=== PATIENT | male | born 1970 | race Caucasian/White ===

== ENCOUNTER 2025-02-17 17:34 | Emergency (ER) | payer BC, SELFPAY ==
--- OUTSIDE RECORDS SUMMARY | 2025-02-17 17:47 | XMS_ITS | Encounter Summary ---
Author Organization [facility] Address [address] [place] [address] Care Team Providers Care Security Ambassador Name Role Phone Danielle Lancaster MD Primary Care Provider [phone] Lynne Luong DO Unavailable [phone] Reason for Visit * Reason Onset Date Comments Med Refill 02/09/2025 Encounter Details Date Type Department Care Team (Late st Contact Info) Description 02/09/2025 Refill [facility] [address] [facility] 230 [place] [phone] Lynne Luong DO [address] [facility] 230 [place] [address] Type 2 diabetes mellitus with diabetic polyneuropathy, with long-term current use of insulin (HCC); Type 2 diabetes with nephropathy (HCC) Social History Tobacco Use Types Packs/Day Years Used Date Smoking Tobacco: Former Cigarettes 3 28 0 08/20/1984 - 08/20/2012 Smokeless Tobacco: Never Comments:Last smoked: 5-10 y ears Alcohol Use Standard Drinks/Week Comments Not Currently 0 (1 standard drink = 0.6 oz pure alcohol) 1-2 drinks on a typical day monthly or less in the past eyar, caffeine intake: 1-2 cups coffee per day B1300 Health Literacy Answer Date Recor ded How often do you need to hav e someone help you when you read instructions, pamphlets, or other written material from your doctor or pharmacy? Never 06/27/2024 Humiliation, Afraid, Rape, and Kick questionnair e Answer Date Recorded Within the last year, have y ou been afraid of your partner or ex-partner? No 02/28/2023 Within the last year, have y ou been humiliated or emotionally abused in other ways by your partner or ex-partner? No Within the last year, have y ou been kicked, hit, slapped, or otherwise physically hurt by your partner or ex-partner? No 02/28/2023 Within the last year, have y ou been raped or forced to have any kind of sexual activity by your partner or ex-partner? No 02/28/2023 Social Connection and Isolat ion Panel [NHANES] Answer Date Recorded In a typical week, how many times do you talk on the phone with family, friends, or neighbors? Never 06/27/2024 How often do you get togethe r with friends or relatives? More than three times a week 06/27/2024 How often do you attend chur or voodoo services? 1 to 4 times per year 06/27/2024 Do you belong to any clubs o r organizations such as latter-day groups, unions, fraternal or athletic groups, or school groups? Yes 06/27/2024 How often do you attend meet ings of the clubs or organizations you belong to? More than 4 times per year 06/27/2024 Are you , , di vorced, , never , or living with a partner? 06/27/2024 AUDIT-C Answer Date Recorded Q1: How often do you have a drink containing alc ohol? Monthly or less 06/27/2024 Q2: How many drinks containi ng alcohol do you have on a typical day when you are drinking? 1 or 2 06/27/2024 Q3: How often do you have si x or more drinks on one occasion? Never 06/27/2024 Overall Financial Resource Strain (CARDIA) Answe r Date Recorded How hard is it for you to pa y for the very basics like food, housing, medical care, and heating? Very hard 06/27/2024 PHQ-2 Answer Date Recorded Patient Health Questionnaire-2 Score 0 01/15/2025 [facility] - Occupational Stress Questionnaire Answer Date Recorded Do you feel stress - tense, restless, nervous, or anxious, or unable to sleep at night because your mind is troubled all the time - these days? To some extent 06/27/2024 Exercise Vital Sign Answer Date Recorde d On average, how many days pe r week do you engage in moderate to strenuous exercise (like a brisk walk)? 0 days 06/27/2024 On average, how many minutes do you engage in exercise at this level? 0 min 06/27/2024 Hunger Vital Sign Answer Date Recorded Within the past 12 months, y ou worried that your food would run out before you got the money to buy more. Never true 06/27/20 24 Within the past 12 months, t he food you bought just didn't last and you didn't have money to get more. Never true 06/27/2024 PRAPARE - Transportation Answer Date Re corded In the past 12 months, has l ack of transportation kept you from medical appointments or from getting medications? No 03/2024 In the past 12 months, has l ack of transportation kept you from meetings, work, or from getting things needed for daily living? No 06/27/2024 Housing Stability Vital Sign Answer Barak e Recorded In the last 12 months, was t here a time when you were not able to pay the mortgage or rent on time? No 02/28/2023 In the last 12 months, how many places have you lived? 1 02/28/2023 In the last 12 months, was t here a time when you did not have a steady place to sleep or slept in a skilled nursing (including now)? No 02/28/2023 Housing Stability Vital Sign Answer Barak e Recorded In the last 12 months, was t here a time when you were not able to pay the mortgage or rent on time? No 06/27/2024 Number of Times Moved in the Last Year Not on fi le 06/27/2024 At any time in the past 12 m [facility], were you homeless or living in a skilled nursing (including now)? No 06/27/2024 Education Answer Date Recorded What is the highest level of school you have completed or the highest degree you have received? Some college, no degree 01/08/2023 Sex and Gender Information Value Date Recorded Sex Assigned at Not on file Legal Sex Male 7:10 PM EDT Gender Identity Male 11/01/2022 7:10 PM EDT Sexual Orientation Straight 01/03/2023 4: 58 PM EDT Occupation Industry Job Start Date Job End Date unemployed Not on file Not on file Not on file documented as of this encounter Miscellaneous Notes * Telephone Encounter - Zaira David LPN - 02/09/2025 12:50 PM EDT Last ov 01/15/2025 RX sent in per Dr Batista documented in this encounter Plan of Treatment Upcoming Encounters Date Type Department Care Team (Late st Contact Info) Description 02/19/2025 4:15 PM EDT Ancillary Procedure [facility] [address] [facility] 130 [place] [phone] 02/24/2025 2:00 PM EDT Office Visit [facility] [address] [place] [phone] Yo Brown, PA [address] [facility] 150 [place] [address] 05/19/2025 3:00 PM EDT Office Visit [facility] [address] [facility] 230 [place] [address] Lynne Luong DO [address] [facility] 230 [place] [address] documented as of this encounter Visit Diagnoses Diagnosis Type 2 diabetes mellitus with diabetic polyneuropathy, with long-term current use of insulin (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
--- OUTSIDE RECORDS SUMMARY | 2025-02-17 17:47 | XMS_ITS | Encounter Summary ---
Author Organization [facility] Address [address] [place] [address] Care Team Providers Care Senior Investment Analyst Name Role Phone Danielle Lancaster MD Primary Care Provider [phone] Lynne Luong DO Unavailable [phone] Lynne Luong DO Unavailable [phone] Encounter Details Date Type Department Care Team (Late st Contact Info) Description 04/03/2023 Abstract [facility] [address] [facility] 230 [place] [address] Lynne Luong, [address] [facility] 230 [place] [address] Social History Tobacco Use Types Packs/Day Years Used Date Smoking Tobacco: Former Cigarettes 3 28 0 08/20/1984 - 08/20/2012 Comments:Last smoked: 5-10 y ears Alcohol Use Standard Drinks/Week Comments Yes 0 (1 standard drink = 0.6 oz pure alcohol) 1-2 drinks on a typical day monthly or less in the past eyar, caffeine intake: 1-2 cups coffee per day Humiliation, Afraid, Rape, and Kick questionnair e [...] phone with family, friends, or neighbors? Never 02/28/2023 How often do you get togethe r with friends or relatives? Once a week 02/28/2023 How often do you attend chur or mormonism services? More than 4 times per year 02/28/2023 Do you belong to any clubs o r organizations such as yazidism groups, unions, fraternal or athletic groups, or school groups? No 02/28/2023 How often do you attend meet ings of the clubs or organizations you belong to? Never 02/28/2023 Are you , , di vorced, , never , or living with a partner? 02/28/2023 AUDIT-C Answer Date Recorded Q1: How often do you have a drink containing alc ohol? Monthly or less 02/28/2023 Q2: How many drinks containi ng alcohol do you have on a typical day when you are drinking? 1 or 2 02/28/2023 Q3: How often do you have si x or more drinks on one occasion? Never 02/28/2023 Overall Financial Resource Strain (CARDIA) Answe r Date Recorded How hard is it for you to pa y for the very basics like food, housing, medical care, and heating? Hard 02/28/2023 PHQ-2 Answer Date Recorded Patient Health Questionnaire-2 Score 0 04/03/2023 [facility] of Occupat ional Health - Occupational Stress Questionnaire Answer Date Recorded Do you feel stress - tense, restless, nervous, or anxious, or unable to sleep at night because your mind is troubled all the time - these days? Very much 02/28/2023 Exercise Vital Sign Answer Date Recorde d On average, how many days pe r week do you engage in moderate to strenuous exercise (like a brisk walk)? 0 days 02/28/2023 On average, how many minutes do you engage in exercise at this level? 0 min 02/28/2023 Hunger Vital Sign Answer Date Recorded Within the past 12 months, y ou worried that your food would run out before you got the money to buy more. Never true 02/29/20 23 Within the past 12 months, t he food you bought just didn't last and you didn't have money to get more. Never true 02/28/2023 PRAPARE - Transportation Answer Date Re corded In the past 12 months, has l ack of transportation kept you from medical appointments or from getting medications? No 02/17 In the past 12 months, has l ack of transportation kept you from meetings, work, or from getting things needed for daily living? No 02/28/2023 Housing Stability Vital Sign Answer [...] place to sleep or slept in a group home (including now)? No 02/28/2023 Education Answer Date Recorded What is the [...] file Not on file Not on file COVID-19 Exposure Response Date Recorded In the last 10 days, have yo u been in contact with someone who was confirmed or suspected to have Coronavirus/COVID-19? No / Unsure 04/02/2023 5:17 PM EDT documented as of this encounter Functional Status * Over the past 2 weeks, how often have you been bothered by any of the following problems? Question Answer Date of Assessment Author Little interest or pleasure in doing things Not at all 04/03/2023 3:40 PM EDT Zaira David LPN Feeling down, depressed, or hopeless Not at all 04/03/2023 3:40 PM EDT Zaira David LPN Patient Health Questionnaire-2 Score 0 04/03/2023 3:40 PM EDT Qasim David LPN documented as of this encounter Plan of Treatment Upcoming Encounters Date Type Department Care Team (Late st Contact Info) Description 02/19/2025 4:15 PM EDT Ancillary Procedure [facility] [address] [facility] 130 [place] [phone] 02/24/2025 2:00 PM EDT Office Visit [facility] [address] [place] [phone] Yo Brown PA 112 [facility] 150 [place] [address] 05/19/2025 3:00 PM EDT Office Visit [facility] [address] [facility] [address] [facility] 230 [place] [phone] Lynne Luong DO [address] [place] [address] [place] [address] documented as of this encounter Visit Diagnoses Not on filedocumented in this encounter Care Teams Senior Investment Analyst Relationship Specialty Start Date End Date Danielle Lancaster MD [address] [place] [address] PCP - General Family Medicine 01/08/23 Lynne Luong DO [address] [place] [address] [place] [address] PCP - [facility] 02/17/23 Lynne Luong DO [address] [place] [address] [place] [address] PCP - [place] [employer] 11/19/23 documented as of this encounter
--- OUTSIDE RECORDS SUMMARY | 2025-02-17 17:47 | XMS_ITS | Encounter Summary ---
Author Organization [facility] Address [address] [place] [address] Care Team Providers Care Rail Switch Operator Name Role Phone Danielle Lancaster MD Primary Care Provider Lynne Luong DO Unavailable [phone] Encounter Details Date Type Department Care Team (Late st Contact Info) Description 01/06/2025 Abstract [facility] [address] [place] [address] Danielle Lancaster MD [address] [place], [place] [phone] Social History Tobacco Use Types Packs/Day Years [...] 06/27/2024 How often do you attend chur ch or jainism services? 1 to 4 times per year 06/27/2024 Do you belong to any clubs o r organizations such as druze groups, unions, fraternal or athletic groups, or [...] Recorded Patient Health Questionnaire-2 Score 0 04/03/2023 [facility] [place] of Occupat ional Health - Occupational Stress [...] place to sleep or slept in a fdc (including now)? No 02/28/2023 Housing Stability Vital Sign Answer Barak e Recorded In the last 12 months, was t here a time when you were not able to pay the mortgage or rent on time? No 06/27/2024 Number of Times Moved in the Last Year Not on fi le 06/27/2024 At any time in the past 12 m [facility], were you homeless or living in a fdc (including now)? No 06/27/2024 Education Answer Date [...] on file documented as of this encounter Plan of Treatment Upcoming Encounters Date Type Department Care Team (Late st Contact Info) Description 02/19/2025 4:15 PM EDT Ancillary Procedure [facility] [address] [place] [address] [place] [phone] 02/24/2025 2:00 PM EDT Office Visit [facility] [address] [place] [phone] Yo Brown, PA [address] [facility] 150 [place] [address] 05/19/2025 3:00 PM EDT Office Visit [facility] [address] [place] [address] [place] [address] Lynne Luong DO [address] [place] [address] [place] [address] documented as of this encounter Visit Diagnoses Not on filedocumented in this encounter Care Teams Rail Switch Operator Relationship Specialty Start Date End Date Danielle Lancaster MD [address] [place] [address] PCP - General Family Medicine 01/08/23 Lynne Luong, [address] [place] [address] [place] [address] PCP - [facility] 11/19/23 documented as of this encounter
--- OUTSIDE RECORDS SUMMARY | 2025-02-17 17:47 | XMS_ITS | Encounter Summary ---
Author Organization [facility] Address [address] [facility] [place] [address] Care Team Providers Care Weed Cutter Name Role Phone Danielle Lancaster MD Primary Care Provider [phone] Lynne Luong DO Unavailable [phone] Encounter Details Date Type Department Care Team (Late st Contact Info) Description 01/25/2025 Abstract [facility] [address] [place] [address] Danielle Lancaster MD [address] [place], [place] [phone] Social History Tobacco Use Types Packs/Day Years [...] often do you attend chur ch or scientology services? 1 to 4 times per year 06/27/2024 Do you belong to any clubs o r organizations such as bahai groups, unions, fraternal or athletic groups, or [...] Recorded Patient Health Questionnaire-2 Score 0 01/15/2025 [facility] [place] of Occupat ional Health - Occupational Stress [...] any time in the past 12 m [facility], were you homeless or living in a [...] ULTRASOUND [address] [place] [address] [place] [phone] 02/24/2025 2:00 PM EDT Office Visit [facility] [address] [facility] [phone] Yo Brown, PA [address] [facility] 150 [place] [address] 05/19/2025 3:00 PM EDT Office Visit [facility] [address] [place] [address] [place] [address] Lynne Luong DO [address] [place] [address] [place] [address] documented as of this encounter Visit Diagnoses Not on filedocumented in this encounter Care Teams Weed Cutter Relationship Specialty Start Date End Date Danielle Lancaster MD [address] [place] [address] PCP - General Family Medicine 01/08/23 Lynne Luong, [address] [place] [address] [place] [address] PCP - Ike Navarro 11/19/23 documented as of this encounter
--- OUTSIDE RECORDS SUMMARY | 2025-02-17 17:47 | XMS_ITS | Encounter Summary ---
Author Organization [facility] Address [address] [place] [address] Care Team Providers Care Fire Hazard Inspector Name Role Phone Danielle Lancaster MD Primary Care Provider [phone] Lynne Luong DO Unavailable [phone] Lynne Luong DO Unavailable [phone] Reason for Visit * Reason Comments Med Refill Encounter Details Date Type Department Care Team (Late st Contact Info) Description 02/17/2023 Refill [facility] [address] [place] [phone] Danielle Lancaster MD [address] [place], [place] [phone] Mononeuropathy of lower extremity, unspecified laterality Social History Tobacco Use Types Packs/Day Years Used Date Smoking Tobacco: Former Cigarettes 3 28 0 08/20/1984 - 08/20/2012 Comments:Last smoked: 5-10 y ears Alcohol Use Standard Drinks/Week Comments Not Currently 0 (1 standard drink = 0.6 oz pure alcohol) 1-2 drinks on a typical day monthly or less in the past eyar, caffeine intake: 1-2 cups coffee per day Education Answer Date Recorded What is the highest level of school you have completed or the highest degree you have received? Some college, no degree 01/08/2023 Sex and Gender Information Value Date Recorded Sex Assigned at Not on file Legal Sex Male 7:10 PM EDT Gender Identity Male 11/01/2022 7:10 PM EDT Sexual Orientation Straight 01/03/2023 4: 58 PM EDT documented as of this encounter Miscellaneous Notes * Telephone Encounter - Danielle Lancaster MD - 02/19/2023 9:04 AM EDT Approvals with refills * Telephone Encounter - Danielle Lancaster MD - 02/19/2023 9:02 AM EDT Approvals with refills documented in this encounter Plan of Treatment Upcoming Encounters Date Type Department Care Team (Late st Contact Info) Description 02/19/2025 4:15 PM EDT Ancillary Procedure [facility] [address] [facility] [place] [address] [place] [phone] 02/24/2025 2:00 PM EDT Office Visit [facility] [address] [place] [phone] Yo Brown PA [address] [facility] 150 [place] [address] 05/19/2025 3:00 PM EDT Office Visit [facility] [address] [place] [address] [place] [address] Lynne Luong DO [address] [facility] 230 [place] [address] documented as of this encounter Visit Diagnoses Diagnosis Mononeuropathy of lower extremity, unspecified laterality documented in this encounter Care Teams Fire Hazard Inspector Relationship Specialty Start Date End Date Danielle Lancaster MD [address] [place], [place] [phone] PCP - General Family Medicine 01/08/23 Lynne Luong DO [address] [place] [address] [place] [address] PCP - [facility] 02/17/23 Lynne Luong, DO [address] [facility] [address] [place] [phone] PCP - [employer] [employer] 11/19/23 documented as of this encounter
--- OUTSIDE RECORDS SUMMARY | 2025-02-17 17:47 | XMS_ITS | Encounter Summary ---
Author Organization [facility] Address [address] [place] [address] Care Team Providers Care Charhouse Worker Name Role Phone Danielle Lancaster MD Primary Care Provider [phone] Lynne Luong DO Unavailable [phone] Encounter Details Date Type Department Care Team (Late st Contact Info) Description 02/09/2025 Orders Only [facility] [address] [place] [phone] Maura Hartman NP [address] [place], [place] [phone] Palpable mass of lower back (Primary Dx) Social History Tobacco Use Types Packs/Day Years [...] How often do you attend chur or jain services? 1 to 4 times per year 06/27/2024 Do you belong to any clubs o r organizations such as cheondoism groups, unions, fraternal or athletic groups, or [...] Recorded Patient Health Questionnaire-2 Score 0 01/15/2025 [facility] [place] of Occupat ional Health - Occupational Stress [...] place to sleep or slept in a mcfp (including now)? No 02/28/2023 Housing Stability Vital Sign Answer Barak e Recorded In the last 12 months, was t here a time when you were not able to pay the mortgage or rent on time? No 06/27/2024 Number of Times Moved in the Last Year Not on fi le 06/27/2024 At any time in the past 12 m [facility], were you homeless or living in a mcfp (including now)? No 06/27/2024 Education Answer Date [...] Ancillary Procedure [facility] [address] [facility] 130 [place] [phone] 02/24/2025 2:00 PM EDT Office Visit [facility] [address] [place] [phone] Yo Brown PA 112 [facility] 150 [place] [address] 05/19/2025 3:00 PM EDT Office Visit [facility] [address] [facility] 230 [place] [address] Lynne Luong DO [address] [facility] 230 [place] [address] Scheduled Orders Name Type Priority Associated Diagnoses Orde r Schedule US Soft Tissue Palpable Mass Imaging Routine Palpable mass of lower back Expected: 02/09/2025, Expires: 02/09/2026 documented as of this encounter Visit Diagnoses Diagnosis Palpable mass of lower back- Primary documented in this encounter Care Teams Charhouse Worker Relationship Specialty Start Date End Date Danielle Lancaster MD [address] [place] [address] PCP - General Family Medicine 01/08/23 Lynne Luong DO [address] [facility] [address] [place] [address] PCP - [employer] 11/19/23 documented as of this encounter
--- OUTSIDE RECORDS SUMMARY | 2025-02-17 17:47 | XMS_ITS | Clinical Summary ---
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 Name Role Phone Danielle Lancaster MD Primary Care Provider [phone] PetLynne branch DO Unavailable [phone] Allergies Active Allergy Reactions Criticality Noted Date Comments Ciprofloxacin Other 04/06/2014 Other Reaction(s): Joint pain Other Reaction(s): Other: See Comments joint pain Fenofibrate High 11/03/2021 Decreased renal function Other Reaction(s): rhabomylosis Nsaids High 01/03/2018 Due to kidney function Other Reaction(s): renal problems Penicillins Anaphylaxis,Unknown High 04/06/2014 Statins 01/03/2018 Other Reaction(s): Fatigue, muscle fatigue Other Reaction(s): muscle cramps Other Reaction(s): Muscle Pain Trimethobenzamide Hives 12/26/2022 tigan Medications magnesium oxide (Mag-Ox) 400 (241.3 Mg) MG tablet Oral for 30 Active Pediatric Multivitamins-Fl (MultiVitamin + Fluoride) 0.25 MG chewable tablet Multivitamin Active Chromium 1 MG capsule Take 200 mcg by mouth in the morning and 200 mcg in the evening. Active melatonin 10 MG tablet Take by mouth. Activ e fluticasone (Flonase) 50 MCG/ACT nasal sprayIndications :Allergic rhinitis due to pollen instill 1 (ONE) spray IN EACH NOSTRIL ONCE DAILY 16 g 023 Active doxycycline (Vibra-Tabs) 100 MG tablet Take 100 mg by mouth every 12 (twelve) hours if needed. 023 Active diclofenac sodium 1 % gel apply 2 grams to KNEES four times a day if needed Active cholecalciferol (Vitamin D-3) 1.25 MG (46974 UT) capsuleIndicatio ns:Vitamin D deficiency Take 1 capsule by mouth weekly. 12 capsule 11 024 Active omega-3 acid ethyl esters (Lovaza) 1 g capsuleIndicatio ns:Elevated triglycerides with high cholesterol,Type 2 diabetes mellitus with diabetic polyneuropathy, with long-term current use of insulin ([facility]) Take 2 capsules (2 g) by mouth in the morning and 2 capsules (2 g) before bedtime. 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 90 tablet 025 2024 Active tadalafil (Cialis) 5 MG tabletIndication s:Impotence Take 1 tablet (5 mg) by mouth Daily as needed for erectile dysfunction 10 tablet 025 2024 Active insulin degludec (Tresiba FlexTouch) 100 UNIT/ML injectionIndicat ions:Type 2 diabetes mellitus with diabetic polyneuropathy, with long-term current use of insulin ([facility]) Inject 76 Units under the skin at bedtime 75 mL 3 Active dapagliflozin (Farxiga) 5 MGIndications:Ty pe 2 diabetes mellitus with diabetic polyneuropathy, with long-term current use of insulin ([facility]) Take 1 tablet (5 mg) by mouth Daily 90 tablet 3 025 2025 Active pen needle 32G x 5 mm miscIndications: Type 2 diabetes with nephropathy (HCC) Injection subcutaneous tid 300 each 3 Active metFORMIN XR (Glucophage-XR) 500 MG 24 hr tabletIndication s:Type 2 diabetes mellitus with diabetic polyneuropathy, with long-term current use of insulin ([facility]) Take 2 tablets (1,000 mg) by mouth in the morning and 2 tablets (1,000 mg) before bedtime. Do not crush, chew, or split. 360 tablet 3 Active insulin regular (HumuLIN R U-500 KWIKPEN) 500 UNIT/ML CONCENTRATED injectionIndicat ions:Type 2 diabetes mellitus with diabetic polyneuropathy, with long-term current use of insulin ([facility]) 75 units breakfast and 60 units dinner 21 mL Active insulin degludec (Tresiba FlexTouch) 100 UNIT/ML injectionIndicat ions:Type 2 diabetes mellitus with diabetic polyneuropathy, with long-term current use of insulin ([facility]) Inject 76 Units under the skin at bedtime 75 mL 024 2024 Discontinued(R eorder) dapagliflozin (Farxiga) 5 MGIndications:Ty pe 2 diabetes mellitus with diabetic polyneuropathy, with long-term current use of insulin ([facility]) Take 1 tablet (5 mg) by mouth Daily 90 tablet 3 024 2024 Discontinued(R eorder) pen needle 32G x 5 mm miscIndications: Type 2 diabetes with nephropathy (HCC) Injection subcutaneous tid 300 each 3 024 2024 Discontinued(R eorder) baclofen (Lioresal) 10 MG tabletIndication s: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 60 tablet 3 025 2024 Discontinued(R eorder) metFORMIN XR (Glucophage-XR) 500 MG 24 hr tabletIndication s:Type 2 diabetes mellitus with diabetic polyneuropathy, with long-term current use of insulin ([facility]) Take 2 tablets (1,000 mg) by mouth in the morning and 2 tablets (1,000 mg) before bedtime. Do not crush, chew, or split. 360 tablet 025 2024 Discontinued(R eorder) tadalafil (Cialis) 5 MG tabletIndication s:Impotence,BPH with lower urinary tract symptoms without urinary obstruction Take 1 tablet (5 mg) by mouth Daily 30 tablet 2 025 2024 Discontinued cyanocobalamin (Vitamin B-12) 1000 MCG tabletIndication s:Vitamin B12 deficiency Take 1 tablet (1,000 mcg) by mouth Daily 30 tablet 11 025 2024 Discontinued(R eorder) insulin regular (HumuLIN R U-500 KWIKPEN) 500 UNIT/ML CONCENTRATED injectionIndicat ions:Type 2 diabetes mellitus with diabetic polyneuropathy, with long-term current use of insulin (HCC) 75 units breakfast and 60 units dinner 21 mL 3 025 2024 Discontinued(R eorder) baclofen (Lioresal) 10 MG tabletIndication s: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 Take 1 tablet (10 mg) by mouth in the morning and 2 tablet (20 mg) before bedtime. 90 tablet 025 2024 Discontinued tadalafil (Cialis) 5 MG tabletIndication s:Impotence Take 1 tablet (5 mg) by mouth Daily as needed for erectile dysfunction 10 tablet 025 2024 Discontinued(R eorder) Active Problems Problem Noted Date Diagnosed Date Myalgia due to statin 04/24/2024 Neuropathy 02/12/2024 Obstructive sleep apnea (adult) (pediatric) 01/19 Primary osteoarthritis of left knee 02/12/2024 Primary osteoarthritis of right knee 02/12/2024 Mid back pain 02/12/2024 Abdominal wall hematoma 12/06/2023 Personal history of colonic polyps 12/06/2023 Esophageal reflux 12/04/2023 Flank hernia 12/04/2023 Restless leg syndrome 12/04/2023 Primary osteoarthritis of right hip 12/04/2023 Pancreatitis ([facility]) 12/04/2023 Thoracic spondylosis 12/04/2023 Statin intolerance 06/19/2023 Long-term insulin use 04/03/2023 Class 3 severe obesity due t o excess calories with serious comorbidity and body mass index (BMI) of 45.0 to 49.9 in adult 04/03/2023 Osteoarthritis of left knee 03/13/2023 Acanthosis nigricans 12/26/2022 Adenomatous polyp of transverse colon 12/26/2022 Elevated triglycerides with high cholesterol 04/2023 Essential hypertension 12/26/2022 Hematoma 12/26/2022 Hidradenitis suppurativa 12/26/2022 Low vitamin D level 12/26/2022 Mononeuropathy of lower extremity 12/26/2022 Obstructive sleep apnea 12/26/2022 Overview (06/19/2023): Compliant with auto cpap Other chronic pain 12/26/2022 Pain in thoracic spine 12/26/2022 Primary insomnia 12/26/2022 Seasonal allergic rhinitis due to pollen 023 Type 2 diabetes mellitus with diabetic polyneuro jayro 12/26/2022 Assessment & Plan (01/15/2025 3:51 PM EDT): During the appointment today all pertinent labs, imaging, health maintenance, and glucose readings were reviewed. Encouraged to check blood glucose throughout the day with some fasting and some PP readings. They are to bring their glucose meter/cgm in to all appointments. All of the patients questions, treatment options, and current care plan and goals were discussed. A copy of this along with pertinent instructions were given to the patient at the end of the appointment. The patient voices understanding of all of this and is to call in between appointments if they have any problems or questions. Ethan Keith is struggling to gain control of their diabetes. I am very concerned for diabetes related complications. , Instructed on the proper insulin injection technique either in the abdomen, upper outer thigh, or back of the arm. They are to rotate injection sites to prevent scar tissue. , Instructions given today include: Insulin instructions and Dietary education. Encouraged to at least eat something for breakfast when he is taking his insulin. Will increase his U-500 insulin for breakfast and dinner. He had a normal cortisol test a couple of years ago so doubt cushings syndrome/hypercortisolism. Possible that he has a rheumatologic/inflammatory condition that could be increasing his insulin resistance. He has very high TG (much better than previous) but this makes him very insulin resistant as well. He cannot tolerate statins or fenofibrate due to rhabdomyolysis. Assessment & Plan (02/13/2024 8:17 PM EDT): During the appointment today all pertinent labs, imaging, health maintenance, and glucose readings were reviewed. Encouraged to check blood glucose throughout the day with some fasting and some PP readings. They are to bring their glucose meter/cgm in to all appointments. All of the patients questions, treatment options, and current care plan and goals were discussed. A copy of this along with pertinent instructions were given to the patient at the end of the appointment. The patient voices understanding of all of this and is to call in between appointments if they have any problems or questions. Ethan Covington Sagar control is stable overall. , Instructed on the importance of taking insulin before eating. If it has been more than 30-45 min since eating they should not give the meal dose but should just give a correction insulin dose. , Instructed on the proper insulin injection technique either in the abdomen, upper outer thigh, or back of the arm. They are to rotate injection sites to prevent scar tissue. , Instructions given today include: Hypoglycemia management, Insulin instructions, and Dietary education. Increase U-500 insulin mainly at dinner to help improve his readings. Assessment & Plan (10/09/2023 8:54 PM EST): During the appointment today all pertinent labs, imaging, health maintenance, and glucose readings were reviewed. Encouraged to check blood glucose throughout the day with some fasting and some PP readings. They are to bring their glucose meter/cgm in to all appointments. All of the patients questions, treatment options, and current care plan and goals were discussed. A copy of this along with pertinent instructions were given to the patient at the end of the appointment. The patient voices understanding of all of this and is to call in between appointments if they have any problems or questions. Ethan Keith is making improvements and encouraged on this. , Instructed on the importance of taking insulin before eating. If it has been more than 30-45 min since eating they should not give the meal dose but should just give a correction insulin dose. , Instructions given today include: Hypoglycemia management and Insulin instructions. He needs to eat something when he takes his U-500 insulin. He can continue to do intermittent fasting with eating for 6-8 hours a day and fasting for 16-18 hours daily and still do this. Will increase his tresiba and decrease U- 500 insulin to help smooth out his readings. Assessment & Plan (07/04/2023 8:21 PM EST): During the appointment today all pertinent labs, imaging, health maintenance, and glucose readings were reviewed. Encouraged to check blood glucose throughout the day with some fasting and some PP readings. They are to bring their glucose meter/cgm in to all appointments. All of the patients questions, treatment options, and current care plan and goals were discussed. A copy of this along with pertinent instructions were given to the patient at the end of the appointment. The patient voices understanding of all of this and is to call in between appointments if they have any problems or questions. Ethan Keith control is stable overall. Discussed the cost of his medications at length. He states he cannot use coupon cards due to his 's insurance being through the government. He has a high copay for his insulin and doesn't want to pay this as it used to be a lot less expensive. I told him that I don't have any other suggestions on how to make his insulin cheaper. I did give him some samples of tresiba to help him out until after the first of the year. He needs to be on concentrated insulin due to the amt of insulin he needs to control his bg. Assessment & Plan (04/04/2023 5:21 PM EDT): During the appointment today all pertinent labs, imaging, health maintenance, and glucose readings were reviewed. Encouraged to check blood glucose throughout the day with some fasting and some PP readings. They are to bring their glucose meter/cgm in to all appointments. All of the patients questions, treatment options, and current care plan and goals were discussed. A copy of this along with pertinent instructions were given to the patient at the end of the appointment. The patient voices understanding of all of this and is to call in between appointments if they have any problems or questions. Ethan Keith is doing okay. , Instructions given today include: Hypoglycemia management, Insulin instructions, and Dietary education. Will decrease insulin to help prevent hypoglycemia. He is more sensitive to insulin with his weight loss. He is to be more consistent with how he is taking his insulin. Discussed GLP-1 agonist but concern with this high TG and very high risk for pancreatitis. 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 12/26/2022 07/04/2023 Stage 1 chronic kidney disease 12/26/2022 06/19/2023 Stage 3b chronic kidney disease 12/26/2022 06/19/2023 Type 2 diabetes mellitus 12/26/2022 Type 2 diabetes mellitus with hyperglycemia 05/31/2016 07/04/2023 Body mass index 40.0-44.9, adult 02/25/2016 07/04/2023 Encounters Date Type Department Care Team Description 02/12/2025 Travel 02/09/2025 Orders Only [facility] [address] [place] [address] Maura Hartman NP Palpable mass of lower back (Primary Dx) 02/09/2025 Refill [facility] [address] [place] [address] Lynne Luong, Type 2 diabetes mellitus with diabetic polyneuropathy, with long-term current use of insulin (HCC); Type 2 diabetes with nephropathy (HCC) 02/06/2025 Orders Only [facility] [address] [place] [address] Maura Hartman NP Periumbilical mass (Primary Dx) 01/30/2025 Telephone [facility] [address] [facility] [place] [address] Nikki Ge MA 01/25/2025 Abstract [facility] [address] [facility] [place] [address] Danielle Lancaster MD 01/23/2025 3:30 PM EDT Office Visit [facility] [address] [facility] [place] [address] Maura Hartman NP BPH with lower urinary tract symptoms without urinary obstruction (Primary Dx); 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 [address] [place] [address] Lynne Luong DO Long-term insulin use (HCC) (Primary Dx); Type 2 diabetes mellitus with diabetic polyneuropathy, with long-term current use of insulin (HCC); Class 3 severe obesity due to excess calories with serious comorbidity and body mass index (BMI) of 45.0 to 49.9 in adult ([facility]) 01/15/2025 Travel 01/14/2025 [facility] [address] [facility] [place] [address] Jacqui Caro MA 01/13/2025 Orders Only [facility] [address] [facility] [place] [address] Maura Hartman NP BPH with lower urinary tract symptoms without urinary obstruction (Primary Dx) 01/13/2025 Results Follow-Up [facility] [address] [facility] [place] [address] Maura Hartman NP Vitamin B12 deficiency (Primary Dx) 01/09/2025 2:30 PM EDT Office Visit [facility] [address] [facility] [place] [address] Maura Hartman NP Fatigue, unspecified type (Primary Dx); Urinary urgency; Impotence; Slow urinary stream; Prostate cancer screening; Myalgia; Bilateral elbow joint pain; Acute right-sided low back pain without sciatica; BPH with lower urinary tract symptoms without urinary obstruction; Neoplasm of uncertain behavior of skin; Bilateral hip pain 01/09/2025 Bamboo flowsheet [facility] [address] [place] [address] Maura Hartman NP 01/09/2025 Travel 01/06/2025 Abstract [facility] [address] [place] [address] Danielle Lancaster MD 12/30/[address] 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 [address] [place] [address] Lynne Luong, Appointment needed 11/26/[address] [facility] [address] [place] [address] Magaly Campos LPN Farxiga approval 11/26/[address] [facility] [address] [place] [address] Magaly Campos LPN Farxiga PA initiated from Last 3 Months Family History Medical History Relation Name Comments Cancer Father Anthony Heart disease Father Anthony Hyperlipidemia Father Anthony Hypertension Father Anthony Cancer Maternal Grandfather Guy Alcohol abuse Maternal Grandmother Leslie Asthma Maternal Grandmother Leslie COPD Maternal Grandmother Leslie Cancer Maternal Grandmother Leslie Depression Maternal Grandmother Leslie Diabetes Maternal Grandmother Leslie Heart disease Maternal Grandmother Leslie Stroke Maternal Grandmother Leslie Anxiety disorder Mother Reshma Depression Mother Reshma Diabetes Mother Reshma Early natural Mother Reshma Heart attack Mother Reshma cause of Heart disease Mother Reshma Hypertension Mother Reshma Kidney disease Mother Reshma Vision loss Mother Reshma Early natural Mother's Brother 1 Tae Early natural Mother's Brother 2 Sanchez Cancer Paternal Grandfather Preston Diabetes Paternal Grandmother Rachel Heart disease Paternal Grandmother Rachel Mental illness Neg Hx Relation Name Status Comments Daughter Alive 2 daughters Father Anthony Alive Maternal Grandfather Guy Maternal Grandmother Leslie Mother Reshma Mother's Brother 1 Tae Mother's Brother 2 Sanchez Other Siblings Alive strained relati onships Paternal Grandfather Preston Paternal Grandmother Rachel Son Alive 1 son Social History Tobacco Use Types Packs/Day Years Used Date Smoking Tobacco: Former Cigarettes 3 28 0 08/20/1984 - 08/20/2012 Smokeless Tobacco: Never Tobacco Cessation:Counseling Given: Not Answered Comments:Last smoked: 5-10 years Alcohol Use Standard Drinks/Week Comments Not Currently [...] How often do you attend chur or protestant services? 1 to 4 times per year 06/27/2024 Do you belong to any clubs o r organizations such as yazidi groups, unions, fraternal or athletic groups, or [...] Recorded Patient Health Questionnaire-2 Score 0 01/15/2025 [facility] - Occupational Stress Questionnaire Answer Date Recorded [...] place to sleep or slept in a retirement (including now)? No 02/28/2023 Housing Stability Vital Sign Answer Barak e Recorded In the last 12 months, was t here a time when you were not able to pay the mortgage or rent on time? No 06/27/2024 Number of Times Moved in the Last Year Not on fi le 06/27/2024 At any time in the past 12 m [facility], were you homeless or living in a retirement (including now)? No 06/27/2024 Education Answer Date [...] file Not on file Not on file Last Filed Vital Signs Vital Sign Reading Time Taken Comments Blood Pressure 128/60 01/23/2025 3:30 PM EDT Pulse 90 01/23/2025 3:30 PM EDT Temperature 36.4 C (97.5 F) 01/23/2025 3:30 PM EDT Respiratory Rate 16 06/19/2023 3:59 PM EDT Oxygen Saturation 96% 01/23/2025 3:30 PM EDT Inhaled Oxygen Concentration - - Weight 147 kg (325 lb) 01/23/2025 3:30 PM EDT Height 177.8 cm (5' 10 ) 01/23/2025 3:30 PM EDT Body Mass Index 46.63 01/23/2025 3:30 PM EDT Plan of Treatment Upcoming Encounters Date Type Department Care Team (Late st Contact Info) Description 02/19/2025 4:15 PM EDT Ancillary Procedure [facility] [address] [place] [address] 02/24/2025 2:00 PM EDT Office Visit [facility] [address] [place] [phone] Yo Brown PA [address] [place] [address] 05/19/2025 3:00 PM EDT Office Visit [facility] [address] [place] [address] Lynne Luong DO [address] [place] [address] Health Maintenance Due Date Last Done Comments CT Colonography 1972 FIT-DNA 1972 FIT 1972 FOBT 1972 Lung Cancer Screening Shared Decision Making 1972 Sigmoidoscopy 1972 Diabetes: Retinopathy Screening 01/18/2024 01/17/2022, 12/21/2020, 01/02/2019 Diabetes: Hemoglobin A1C 04/17/2025 025, 06/27/2024, 02/12/2024, Additional history exists Influenza Vaccine (#1) 2025 Diabetes: Urine Protein Screening 06/27/2025 06/27/2024, 03/13/2023, 04/08/2020, Additional history exists Colonoscopy 01/01/2034 01/02/2024, 09/19/2018 Colorectal Cancer Screening 01/01/2034 Procedures Procedure Name Priority Date/Time Associated Diagnosis Comments POCT GLYCOSYLATED HEMOGLOBIN (HGB A1C) Routine 01/15/2025 3:28 PM EDT Type 2 diabetes mellitus with diabetic polyneuropathy, with long-term current use of insulin (HCC) VITAMIN B12 Routine 01/09/2025 3:50 PM EDT Fatigue, unspecified type Myalgia FERRITIN Routine 01/09/2025 3:50 PM EDT Fatigue, unspecified type Myalgia VITAMIN D 25 HYDROXY TOTAL Routine 01/09/2025 3:50 PM EDT Fatigue, unspecified type Myalgia PSA, TOTAL Routine 01/09/2025 3:50 PM EDT Prostate cancer screening TSH W/REFLEX TO FT4 Routine 01/09/2025 3 :50 PM EDT Fatigue, unspecified type Myalgia POCT URINALYSIS DIPSTICK Routine 01/09/2025 2:47 PM EDT Urinary urgency MICROALBUMIN / CREATININE URINE RATIO Routine 06/27/2024 4:17 PM EST Type 2 diabetes mellitus with diabetic polyneuropathy, with long-term current use of insulin (HCC) COLONOSCOPY Routine 01/02/2024 2:18 PM EDT COLOR FUNDUS PHOTOGRAPHY - OU - BOTH EYES Routine 01/17/2022 12:00 PM EDT from Last 3 Months or Most Recently Relevant to Health Maintenance Results * (ABNORMAL) POCT glycosylated hemoglobin (Hb A1C) docked device (01/15/2025 3:28 PM EDT) Hemoglobin A1C 8.4 Blood Venous blood specimen / Unknown 01/15/2025 3:28 PM EDT Lynne Loung DO POINT OF CARE TEST ENTER/E DIT ORDERABLES Final Result * TSH W/REFLEX TO FT4 (01/09/2025 3:50 PM EDT) TSH W/REFLEX TO FT4 0.86 0.40 - 4.50 mIU/L [facility] 01/09/2025 3:50 PM EDT 01/09/2025 3:50 PM EDT Narrative Resulting Agency Comment Performing Organization Information Site ID: QPT Name: [facility] Address: [address] [place] [address], [address] [place] [phone] Director: Amari Hyman MD [facility] CUPOLA TENDER HELPER LAB BLOOD ORDERABLES Final Resu lt Performing Organization Address [facility] Co de Phone Number [facility] * Vitamin D 25 hydroxy (01/09/2025 3:50 PM EDT) VITAMIN D,25-OH,TOTAL,IA 47 30 - 100 ng/mL [facility] Comment: Vitamin D Status 25-OH Vitamin D: Deficiency: <20 ng/mL Insufficiency: 20 - 29 ng/mL Optimal: > or = 30 ng/mL For 25-OH Vitamin D testing on patients on D2-supplementation and patients for whom quantitation of D2 and D3 fractions is required, the QuestAssureD(TM) 25-OH VIT D, (D2,D3), LC/MS/MS is recommended: order code [id number] (patients >2yrs). See Note 1 Note 1 For additional information, please refer to http://education.TheMobileGamer (TMG)/faq/RYB946 (This link is being provided for informational/ educational purposes only.) Blood Venous blood specimen / Unknown 01/09/2025 3:50 PM EDT 01/09/2025 3:50 PM EDT Narrative Resulting Agency Comment Performing Organization Information Site ID: QPT Name: [facility] Address: [address] [place] [address], [address] [place] [phone] Director: Aamri Hyman MD [facility] CUPOLA TENDER HELPER LAB BLOOD ORDERABLES Final Resu lt Performing Organization Address [facility] Co de Phone Number [facility] * PSA (01/09/2025 3:50 PM EDT) PSA, TOTAL 0.66 < OR = 4.00 ng/mL [facility] Comment: The total PSA value from this assay system is standardized against the WHO standard. The test result will be approximately 20% lower when compared to the equimolar-standardized total PSA (Renaldo Naresh). Comparison of serial PSA results should be interpreted with this fact in mind. This test was performed using the Siemens chemiluminescent method. Values obtained from different assay methods cannot be used interchangeably. PSA levels, regardless of value, should not be interpreted as absolute evidence of the presence or absence of disease. Blood Venous blood specimen / Unknown 01/09/2025 3:50 PM EDT 01/09/2025 3:50 PM EDT Narrative Resulting Agency Comment Performing Organization Information Site ID: QPT Name: [facility] Address: [address] [place] [address], [address] [place] [phone] Director: Amari Hyman MD [facility] CUPOLA TENDER HELPER LAB BLOOD ORDERABLES Final Resu lt Performing Organization Address [facility] de Phone Number [facility] * Ferritin (01/09/2025 3:50 PM EDT) FERRITIN 255 38 - 380 ng/mL [facility] Blood Venous blood specimen / Unknown 01/09/2025 3:50 PM EDT 01/09/2025 3:50 PM EDT Narrative Resulting Agency Comment Performing Organization Information Site ID: QPT Name: [facility] Address: [address] [place] [address], [address] [place] [phone] Director: Amari Hyman MD [facility] CUPOLA TENDER HELPER LAB BLOOD ORDERABLES Final Resu lt Performing Organization Address [facility] de Phone Number [facility] * Vitamin B12 (01/09/2025 3:50 PM EDT) VITAMIN B12 250 200 - 1,100 pg/mL [facility] Comment: Please Note: Although the reference range for vitamin B12 is 200-1100 pg/mL, it has been reported that between 5 and 10% of patients with values between 200 and 400 pg/mL may experience neuropsychiatric and hematologic abnormalities due to occult B12 deficiency; less than 1% of patients with values above 400 pg/mL will have symptoms. Blood Venous blood specimen / Unknown 01/09/2025 3:50 PM EDT 01/09/2025 3:50 PM EDT Narrative Resulting Agency Comment Performing Organization Information Site ID: QPT Name: [facility] Address: [facility] [address], [address] [place] [phone] Director: Amari Hyman MD Maura Hartman CUPOLA TENDER HELPER LAB BLOOD ORDERABLES Final Resu lt [facility] * (ABNORMAL) POCT urinalysis dipstick manually resulted (01/09/2025 2:47 PM EDT) Color, UA Yellow Clarity, UA Clear Glucose, UA Positive Negative - 2000(110) ++++ mg/dL Bilirubin, UA Negative Negative - 4(70) +++ mg/dL Ketones, UA Positive Negative - 160(16) ++++ mg/dL Spec Grav, UA 1.015 1 - 1.03 Blood, UA Negative Negative - 50 [place]/mcL pH, UA 5.0 5 - 9 Protein, UA Positive Negative - 2000(20) ++++ mg/dL Urobilinogen, UA 0.2 0.2 - 12 mg/dL Leukocytes, UA Negative Negative - 500+++ Marcela/mcL Nitrite, UA Negative Negative - Positive Urine 01/09/2025 2:47 PM EDT Maura Hartman CUPOLA TENDER HELPER POINT OF CARE TEST ENTER/EDIT O RDERABLES Final Result * Microalbumin / creatinine urine ratio (06/27/2024 4:17 PM EST) CREATININE, RANDOM URINE 57 20 - 320 mg/dL [facility] ALBUMIN, URINE 0.3 See Note: mg/dL [facility] Comment: Reference Range: Reference Range Not established ALBUMIN/CREATININE RATIO, RANDOM URINE 5 <30 mg/g creat [facility] Comment: The ADA defines abnormalities in albumin excretion as follows: Albuminuria Category Result (mg/g creatinine) Normal to Mildly increased <30 Moderately increased 30-299 Severely increased > OR = 300 The ADA recommends that at least two of three specimens collected within a 3-6 month period be abnormal before considering a patient to be within a diagnostic category. Urine Urine specimen obtained by clean catch procedure / Unknown 06/27/2024 4:17 PM EST 06/27/2024 4:18 PM EST Narrative [facility] - 06/30/2024 12:04 PM EST SPLIT 06/27/2024 FROM [id number] COLLECTION KIT GIVEN TO PATIENT. PATIENT ADVISED TO RETURN. Resulting Agency Comment Performing Organization Information Site ID: QPT Name: [email or web address] Address: [address] [place] [address], [address] [place] [phone] Director: Amari Hyman MD Danielle Lancaster MD LAB URINE ORDERABLES Final Resul t [facility] * Colonoscopy (01/02/2024 2:18 PM EDT) Anatomical Region Laterality Modality Endoscopy Aaron Serrano DO ENDOSCOPY PROCEDURE ORDERABLES Final Result * Color Fundus Photography - OU - Both Eyes (01/17/2022 12:00 PM EDT) Anatomical Region Laterality Modality Head Fundus Photograp hy 01/17/2022 12:0 0 PM EDT Narrative 01/17/2022 12:00 PM EDT PERFORMED AT [facility] LOCATION:[id number] Procedure Note CONVERSION, GENERIC - 01/03/2023 PERFORMED AT [facility] LOCATION:[id number] Danielle Lancaster MD OPHTH PHOTOGRAPHY Final Result from Last 3 Months or Most Recently Relevant to Health Maintenance Insurance BCBS Care Teams Bulk Plant Operator Relationship Specialty Start Date End Date Danielle Lancaster MD [address] [place] [address] PCP - General Family Medicine 01/08/23 Lynne Luong DO [address] [address] PCP - [facility] [employer] 11/19/23
--- OUTSIDE RECORDS SUMMARY | 2025-02-17 17:47 | XMS_ITS | Encounter Summary ---
Author Organization [facility] Address [address] [place] [address] Care Team Providers Care Well Servicing Rig Operator Name Role Phone Danielle Lancaster MD Primary Care Provider [phone] Lynne Luong DO Unavailable [phone] Encounter Details Date Type Department Care Team (Late st Contact Info) Description 02/06/2025 Orders Only [facility] [address] [place] [phone] Maura Hartman NP [address] [place], [place] [phone] Periumbilical mass (Primary Dx) Social History Tobacco Use Types [...] How often do you attend chur or mandaen services? 1 to 4 times per year 06/27/2024 Do you belong to any clubs o r organizations such as jainism groups, unions, fraternal or athletic groups, or [...] Recorded Patient Health Questionnaire-2 Score 0 01/15/2025 [facility] [place] of Occupat ional Health - Occupational Stress [...] place to sleep or slept in a prison (including now)? No 02/28/2023 Housing Stability Vital Sign Answer Barak e Recorded In the last 12 months, was t here a time when you were not able to pay the mortgage or rent on time? No 06/27/2024 Number of Times Moved in the Last Year Not on fi le 06/27/2024 At any time in the past 12 m [facility], were you homeless or living in a prison (including now)? No 06/27/2024 Education Answer Date [...] Ancillary Procedure [facility] [address] [facility] [address] [place] [phone] 02/24/2025 2:00 PM EDT Office Visit [facility] [address] [place] [phone] Yo Brown PA [address] [facility] 150 [place] [address] 05/19/2025 3:00 PM EDT Office Visit [facility] [address] [place] [address] Lynne Luong DO [address] [facility] [address] [place] [address] documented as of this encounter Visit Diagnoses Diagnosis Periumbilical mass- Primary Abdominal or pelvic swelling, mass or lump, periumbilic documented in this encounter Care Teams Well Servicing Rig Operator Relationship Specialty Start Date End Date Danielle Lancaster MD [address] [place], [place] [phone] PCP - General Family Medicine 01/08/23 Lynne Luong DO [address] [facility] [address] [place] [address] PCP - [place] [employer] 11/19/23 documented as of this encounter
--- OUTSIDE RECORDS SUMMARY | 2025-02-17 17:47 | XMS_ITS | Encounter Summary ---
Author Organization [facility] Address [address] [place] [address] Care Team Providers Care Blending Operator Name Role Phone Danielle Lancaster MD Primary Care Provider [phone] Lynne Luong DO Unavailable [phone] Lynne Luong DO Unavailable [phone] Reason for Visit * Reason Comments Med Refill Encounter Details Date Type Department Care Team (Late st Contact Info) Description 03/18/2023 Refill [facility] [address] [place] [phone] Danielle Lancaster MD [address] [place], [place] [phone] Mononeuropathy of lower extremity, unspecified laterality; Allergic rhinitis due to pollen Social History Tobacco Use Types Packs/Day Years [...] ways by your partner or ex-partner? No 07 /07/2023 Within the last year, have y ou [...] How often do you attend chur or adventist services? More than 4 times per year 02/28/2023 Do you belong to any clubs o r organizations such as jain groups, unions, fraternal or athletic groups, or [...] housing, medical care, and heating? Hard 02/28/2023 [facility] of Occupat ional Health - Occupational Stress [...] place to sleep or slept in a nursing home (including now)? No 02/28/2023 Education Answer [...] suspected to have Coronavirus/COVID-19? No / Unsure 03/13/2023 10:16 AM EDT documented as of this encounter Miscellaneous Notes * Telephone Encounter - Danielle Lancaster MD - 03/19/2023 8:01 AM EDT Approvals with refills * Telephone Encounter - Danielle Lancaster MD - 03/19/2023 8:00 AM EDT Approvals with refills documented in this encounter Plan of Treatment Upcoming Encounters Date Type Department Care Team (Late st Contact Info) Description 02/19/2025 4:15 PM EDT Ancillary Procedure [facility] [address] [place] [phone] 02/24/2025 2:00 PM EDT Office Visit [facility] [address] [place] [phone] Yo Brown, PA [address] [facility] 150 [place] [address] 05/19/2025 3:00 PM EDT Office Visit [facility] [address] [place] [address] Lynne Luong DO [address] [place] [address] documented as of this encounter Visit Diagnoses Diagnosis Mononeuropathy of lower extremity, unspecified laterality Allergic rhinitis due to pollen documented in this encounter Care Teams Blending Operator Relationship Specialty Start Date End Date Danielle Lancaster MD [address] [facility] [place] [address] PCP - General Family Medicine 01/08/23 Lynne Luong, DO [address] [place] [address] PCP - [facility] 02/17/23 Lynne Luong DO [address] [place] [address] PCP - [facility] 11/19/23 documented as of this encounter
--- OUTSIDE RECORDS SUMMARY | 2025-02-17 17:47 | XMS_ITS | Encounter Summary ---
Author Organization [facility] Address [address] [place] [address] Care Team Providers Care Marsh Buggy Operator Name Role Phone Danielle Lancaster MD Primary Care Provider [phone] Lynne Luong DO Unavailable [phone] PetLynne branch DO Unavailable [phone] Encounter Details Date Type Department Care Team ([facility] Contact Info) Description 01/08/2023 Abstract [facility] [address] [place] [address] Rogelio Dunn, DPM [address] [place], [place] [phone] Social History Tobacco Use Types Packs/Day Years Used Date Smoking Tobacco: Former Cigarettes Q uit: 08/20/2012 Tobacco Cessation:Counseling Given: Not Answered Comments:Last smoked: 5-10 years Alcohol Use Standard Drinks/Week Comments Yes 0 [...] PM EDT documented as of this encounter Plan of Treatment Upcoming Encounters Date Type Department Care Team ([facility] st Contact Info) Description 02/19/2025 4:15 PM EDT Ancillary Procedure [facility] [address] [place] [phone] 02/24/2025 2:00 PM EDT Office Visit [facility] [address] [facility] [place] [phone] Yo Brown, PA [address] [facility] 150 [place] [address] 05/19/2025 3:00 PM EDT Office Visit [facility] [address] [place] [address] Lynne Luong DO [address] [place] [address] documented as of this encounter Visit Diagnoses Not on filedocumented in this encounter Care Teams Marsh Buggy Operator Relationship Specialty Start Date End Date Danielle Lancaster MD [address] [place] [place], [place] [phone] PCP - General Family Medicine 01/08/23 Lynne Luong DO [address] [place] [address] PCP - [facility] 02/17/23 Lynne Luong DO [address] [place] [address] PCP - [facility] 11/19/23 documented as of this encounter
--- OUTSIDE RECORDS SUMMARY | 2025-02-17 17:47 | XMS_ITS | Encounter Summary ---
Author Organization [facility] Address [address] [place] [address] Care Team Providers Care Sales Promotion Representative Name Role Phone Danielle Lancaster MD Primary Care Provider [phone] Lynne Luong DO Unavailable [phone] Lynne Luong DO Unavailable [phone] Reason for Visit * Reason Comments Med Refill Encounter Details Date Type Department Care Team (Late st Contact Info) Description 01/11/2023 Refill [facility] [address] [place] [phone] Gin Escobedo, PARTS ANALYST [address] [place] [address] Mononeuropathy of lower extremity, unspecified laterality (Primary Dx) Social History Tobacco Use Types [...] encounter Miscellaneous Notes * Telephone Encounter - Constanza Khan - 01/24/2023 3:54 PM EDT Patient called to check on the refill request that he had but in earlier today and asked about a referral that was supposed to be put in. * Telephone Encounter - Danielle Lancaster MD - 01/11/2023 6:23 PM EDT Approvals with refills documented in this encounter Plan of Treatment Upcoming Encounters Date Type Department Care Team (Late st Contact Info) Description 02/19/2025 4:15 PM EDT Ancillary Procedure [facility] [address] [facility] 130 [place] [phone] 02/24/2025 2:00 PM EDT Office Visit [facility] [address] [place] [phone] Yo Brown, PA 112 [facility] 150 [place] [address] 05/19/2025 3:00 PM EDT Office Visit [facility] [address] [facility] 230 [place] [address] Lynne Luong DO [address] [facility] [address] [place] [address] documented as of this encounter Visit Diagnoses Diagnosis Mononeuropathy of lower extremity, unspecified laterality- Primary documented in this encounter Care Teams Sales Promotion Representative Relationship Specialty Start Date End Date Danielle Lancaster MD [address] [place], [place] [phone] PCP - General Family Medicine 01/08/23 Lynne Luong DO [address] [place] [address] [facility] 02/17/23 Lynne Luong, DO [address] [place] [address] PCP - [place] [employer] 11/19/23 documented as of this encounter
[2025-02-17 17:48] VITALS: BP 147/66; PULSE 83; TEMP 37.3; O2SAT 93; BMI 45.2
--- OUTSIDE RECORDS SUMMARY | 2025-02-17 17:48 | XMS_ITS | Encounter Summary ---
Author Organization [employer] tem Address [id number] [address] [place] [address] Care Team Providers Care Toe Stapler Name Role Phone Danielle Lancaster MD Primary Care Provider [phone] Reason for Referral * Consultation (Routine) - Closed Specialty Diagnoses / Procedures Referred By Contac t Referred To Contact Nephrology Diagnoses Type 2 diabetes mellitus with other circulatory complication, unspecified whether assisted insulin use ([facility]) Abnormal results of kidney function studies Mir Hood MD [address] [place] [address] Phone: tel: fax: Elliot Porras MD Phone: tel: fax: Referral ID Status Reason Start Date Expiration Date V isits Requested Visits Authorized [id number] Closed Specialty Services Required 07/13/2021 07/13/2022 1 1 Encounter Details Date Type Department Care Team (Late st Contact Info) Description 07/13/2021 Orders Only [facility] [address] [place] [address] Claudia Paz RN Type 2 diabetes mellitus with other circulatory complication, unspecified whether assisted insulin use ([facility]) (Primary Dx); Abnormal results of kidney function studies Social History Tobacco Use Types Packs/Day Years Used Date Smoking Tobacco: Former Smokeless Tobacco: Never Alcohol Use Standard Drinks/Week Comments No 0 (1 standard drink = 0.6 oz pur e alcohol) Childcare Answer Date Recorded Childcare Unknown 01/29/2019 Employment Answer Date Recorded Employment Unknown 01/29/2019 Purpose - Life Answer Date Recorded Purpose and direction in life Unknown Sex and Gender Information Value Date Recorded Sex Assigned at Male 03/28/2021 2:12 PM EDT Legal Sex Male 11:26 AM EDT Gender Identity Male 03/28/2021 2:12 PM EDT Sexual Orientation Don't know 12/14/2022 4: 56 PM EDT COVID-19 Exposure Response Date Recorded In the last month, have you been in contact with someone who was confirmed or suspected to have Coronavirus / COVID-19? No / Unsure 07/07/2021 7:50 AM EST documented as of this encounter Plan of Treatment Scheduled Referrals Name Type Priority Associated Diagnoses Orde r Schedule Ambulatory referral to Nephrology Outpatient Referral Routine Type 2 diabetes mellitus with other circulatory complication, unspecified whether terminologist insulin use ([facility]) Abnormal results of kidney function studies Expected: 07/20/2021 (Approximate), Expires: 01/10/2022 documented as of this encounter Visit Diagnoses Diagnosis Type 2 diabetes mellitus with other circulatory complication, unspecified whether terminologist insulin use ([facility])- Primary Abnormal results of kidney function studies Nonspecific abnormal results of kidney function study documented in this encounter Additional Health Concerns Infection Onset Date Last Indicated Resolved Time COVID-19 Rule-Out 11/15/2022 11/15/2022 11/15/2022 5:58 PM EDT documented as of this encounter Care Teams Toe Stapler Relationship Specialty Start Date End Date Danielle Lancaster MD PCP - General Family Medicine 02/15/17 documented as of this encounter
--- OUTSIDE RECORDS SUMMARY | 2025-02-17 17:48 | XMS_ITS | Encounter Summary ---
Author Organization [facility] [employer] [facility] tem Address [id number] [address] [place] [address] Care Team Providers Care Monotype Machinist Name Role Phone Danielle Lancaster MD Primary Care Provider [phone] Encounter Details Date Type Department Care Team (Late st Contact Info) Description 01/09/2022 Orders Only [facility] [address] [place] [address] Marilu Boles RN Chest pain, unspecified type (Primary Dx); Shortness of breath Social History Tobacco Use Types Packs/Day Years Used Date Smoking Tobacco: Former Smokeless Tobacco: Never Alcohol Use Standard Drinks/Week Comments Yes 0 (1 standard drink = 0.6 oz pur e alcohol) RARELY Childcare Answer Date Recorded Childcare Unknown 01/29/2019 [...] suspected to have Coronavirus/COVID-19? No / Unsure 01/09/2022 8:37 AM EDT documented as of this encounter Plan of Treatment Not on file documented as of this encounter Results * (ABNORMAL) CBC auto differential (01/17/2022 12:34 PM EDT) White Blood Cells 7.2 4.0 - 11.0 X10E9/L 01/17/2022 5:27 PM EDT [facility] RBC count 5.25 4.10 - 5.70 X10E12/L 01/17/2022 5:27 PM EDT [facility] Hemoglobin 16.4 13.0 - 17.0 g/dL 01/17/2022 5:27 PM EDT [facility] Hematocrit 48.1 39 - 49 % 01/17/2022 5:27 PM EDT [facility] MCV 92 80 - 100 fL 01/17/2022 5:27 PM EDT [facility] MCH 31.3 27 - 34 pg 01/17/2022 5:27 PM EDT [facility] MCHC 34.2 32 - 36 g/dL 01/17/2022 5:27 PM EDT [facility] RDW 15.1(H) 11.5 - 15.0 % 01/17/2022 5:27 PM EDT [facility] Platelets 233 150 - 450 X10E9/L 01/17/2022 5:27 PM EDT [facility] MPV 7.8 7 - 12 fL 01/17/2022 5:27 PM EDT [facility] % neutrophils 40.7 % 01/17/2022 5:27 PM EDT [facility] % lymphocytes 50.7 % 01/17/2022 5:27 PM EDT [facility] % monocytes 6.3 % 01/17/2022 5:27 PM EDT [facility] % eosinophils 1.6 % 01/17/2022 5:27 PM EDT [facility] % Basophils 0.7 % 01/17/2022 5:27 PM EDT [facility] Neutrophils Absolute (A) 2.9 1.5 - 6.6 X10E9/L 01/17/2022 5:27 PM EDT [facility] Lymphocytes Absolute 3.6(H) 1.0 - 3.5 X10E9/L 01/17/2022 5:27 PM EDT [facility] Monocytes Absolute 0.4 0 - 0.9 X10E9/L 01/17/2022 5:27 PM EDT [facility] Eosinophils Absolute 0.1 0.0 - 0.4 X10E9/L 01/17/2022 5:27 PM EDT [facility] Basophils Absolute 0.0 0.0 - 0.2 X10E9/L 01/17/2022 5:27 PM EDT [facility] Blood / Unknown 01/17/2022 1 2:34 PM EDT 01/17/2022 12:35 PM EDT us Mariano Lott MD LAB BLOOD ORDERABLES Fin al Result [facility] [address], [address] [place] [address] * (ABNORMAL) Basic Metabolic Panel (01/17/2022 12:34 PM EDT) Sodium 142 134 - 146 mmol/L 01/17/2022 7:46 PM EDT [facility] Potassium, Bld 4.0 3.5 - 5.0 mmol/L 01/17/2022 7:46 PM EDT [facility] Chloride 104 98 - 109 mmol/L 01/17/2022 7:46 PM EDT [facility] CO2 25 22 - 32 mmol/L 01/17/2022 7:46 PM EDT [facility] Anion gap 13 5 - 15 mmol/L 01/17/2022 7:46 PM EDT [facility] BUN 14 5 - 23 mg/dL 01/17/2022 7:46 PM EDT [facility] Creatinine 0.95 0.60 - 1.30 mg/dL 01/17/2022 7:46 PM EDT [facility] Comment:METHOD TRACEABLE TO IDMS STANDARD Glucose 164(H) 65 - 99 mg/dL 01/17/2022 7:46 PM EDT [facility] Calcium 9.8 8.5 - 10.5 mg/dL 01/17/2022 7:46 PM EDT [facility] GFR MDRD Non Af Amer >60 >59 ml/min/1.7 3sq.m 01/17/2022 7:46 PM EDT [facility] GFR MDRD Af Amer >60 >59 ml/min/1.7 3sq.m 01/17/2022 7:46 PM EDT [facility] PLASMA 01/17/2022 12:3 4 PM EDT 01/17/2022 12:35 PM EDT us Mariano Lott MD LAB BLOOD ORDERABLES Fin al Result Performing Organization Address City/State/[facility] Co de Phone Number [facility] [address], [address] [place] [address] documented in this encounter Visit Diagnoses Diagnosis Chest pain, unspecified type- Primary Shortness of breath documented in this encounter Additional Health Concerns Infection Onset Date Last Indicated Resolved Time COVID-19 Rule-Out 11/15/2022 11/15/2022 11/15/2022 5:58 PM EDT documented as of this encounter Care Teams Monotype Machinist Relationship Specialty Start Date End Date Danielle Lancaster MD PCP - General Family Medicine 02/15/17 documented as of this encounter
--- OUTSIDE RECORDS SUMMARY | 2025-02-17 17:48 | XMS_ITS | Encounter Summary ---
Author Organization [facility] Address [address] [facility] [place] [address] Care Team Providers Care Help Desk Support Specialist Name Role Phone Danielle Lancaster MD Primary Care Provider [phone] Lynne Luong DO Unavailable [phone] Encounter Details Date Type Department Care Team (Late st Contact Info) Description 01/03/2024 Abstract [facility] [address] [place] [address] Danielle Lancaster MD [address] [place], [place] [phone] Social History Tobacco Use Types Packs/Day Years [...] week 02/28/2023 How often do you attend [facility] or confucianist services? More than 4 times per year [...] Recorded Patient Health Questionnaire-2 Score 0 04/03/2023 [facility] - Occupational [...] place to sleep or slept in a senior living (including now)? No 02/28/2023 Education Answer Date [...] ULTRASOUND [address] [place] [address] 02/24/2025 2:00 PM EDT Office Visit [facility] [address] [place] [address] Yo Brown, PA [address] [place] [address] 05/19/2025 3:00 PM EDT Office Visit [facility] [address] [place] [address] Lynne Luong DO [address] [place] [address] documented as of this encounter Visit Diagnoses Not on filedocumented in this encounter Care Teams Help Desk Support Specialist Relationship Specialty Start Date End Date Danielle Lancaster MD [address] [place] [address] PCP - General Family Medicine 01/08/23 Lynne Luong DO [address] [place] [address] PCP - Ike Navarro 11/19/23 documented as of this encounter
--- OUTSIDE RECORDS SUMMARY | 2025-02-17 17:48 | XMS_ITS | Encounter Summary ---
Author Organization [facility] Address [address] [facility], [place] [address] Care Team Providers Care Manager Commercial Sales Name Role Phone Danielle Lancaster MD Primary Care Provider [phone] Lynne Luong DO Unavailable Lynne Luong DO Unavailable [phone] Encounter Details Date Type Department Care Team (Late st Contact Info) Description 06/19/2023 Abstract [facility] [address] [place] [address] Danielle Lancaster MD [address] [place], [place] [phone] Social History Tobacco Use Types Packs/Day Years [...] How often do you attend chur or hoahaoism services? More than 4 times per year 02/28/2023 Do you belong to any clubs o r organizations such as episcopal groups, unions, fraternal or athletic groups, or [...] Recorded Patient Health Questionnaire-2 Score 0 04/03/2023 [facility] - Occupational [...] suspected to have Coronavirus/COVID-19? No / Unsure 06/19/2023 2:20 PM EDT documented as of this encounter Functional Status * Over the past 2 weeks, how often have you been bothered by any of the following problems? Question Answer Date of Assessment Author Little interest or pleasure in doing things Not at all 06/19/2023 4:00 PM EDT Mechelle Otoole LPN Feeling down, depressed, or hopeless Several days 06/19/2023 4:00 PM EDT Mechelle Otoole LPN Patient Health Questionnaire-2 Score 1 06/19/2023 4:00 PM EDT Cristy Otoole LPN * If you checked off any problems on this questionnaire so far, Question Answer Date of Assessment Author How difficult have these problems made it for you to do your work, take care of things at home, or get along with other people? Not difficult at all 06/19/2023 4:00 PM EDT Mechelle Otoole LPN documented as of this encounter Plan of Treatment Upcoming Encounters Date Type Department Care Team (Late st Contact Info) Description 02/19/2025 4:15 PM EDT Ancillary Procedure [facility] [address] [place] [address] 02/24/2025 2:00 PM EDT Office Visit [facility] [address] [place] [address] Yo Brown PA [address] [facility] [address] [place] [address] 05/19/2025 3:00 PM EDT Office Visit [facility] [address] [place] [address] Lynne Luong DO [address] [facility] [address] [place] [address] documented as of this encounter Visit Diagnoses Not on filedocumented in this encounter Care Teams Manager Commercial Sales Relationship Specialty Start Date End Date Danielle Lancaster MD [address] [place], [place] [phone] PCP - General Family Medicine 01/08/23 Lynne Luong DO [address] [place] [address] PCP - [facility] 02/17/23 Lynne Luong DO [address] [place] [address] PCP - [place] [facility] 11/19/23 documented as of this encounter
--- OUTSIDE RECORDS SUMMARY | 2025-02-17 17:48 | XMS_ITS | Encounter Summary ---
Author Organization [facility] Address [facility] [id number] [address] [place] [address] Care Team Providers Care Telecommunicator Supervisor Name Role Phone Danielle Lancaster MD Primary Care Provider [phone] Reason for Visit * Reason Comments Med Refill Encounter Details Date Type Department Care Team (Late st Contact Info) Description 02/14/2017 Refill [facility] [address] [place] [address] Yo Ortega PA [address] [facility] [place] [address] Social History Tobacco Use Types Packs/Day Years Used Date Smoking Tobacco: Former Alcohol Use Standard Drinks/Week Comments No 0 (1 standard drink = 0.6 oz pur e alcohol) Sex and Gender Information Value Date Recorded Sex Assigned at Male 03/28/2021 2:12 PM EDT Legal Sex Male 11:26 AM EDT Gender Identity Male 03/28/2021 2:12 PM EDT Sexual Orientation Don't know 12/14/2022 4: 56 PM EDT documented as of this encounter Miscellaneous Notes * Telephone Encounter - Loreto Croft RN - 02/14/2017 7:43 AM EDT Our clinic does not accept pharmacy refill requests. The patient must contact our office. [phone] documented in this encounter Plan of Treatment Not on file documented as of this encounter Visit Diagnoses Not on filedocumented in this encounter Additional Health Concerns Infection Onset Date Last Indicated Resolved Time COVID-19 Rule-Out 11/15/2022 11/15/2022 11/15/2022 5:58 PM EDT documented as of this encounter Care Teams Telecommunicator Supervisor Relationship Specialty Start Date End Date Danielle Lancaster MD PCP - General Family Medicine 02/15/17 documented as of this encounter
--- OUTSIDE RECORDS SUMMARY | 2025-02-17 17:48 | XMS_ITS | Encounter Summary ---
Author Organization [facility] tem Address [facility] [id number] [address] [place] [address] Care Team Providers Care Acute Care Occupational Therapist Name Role Phone Danielle Lancaster MD Primary Care Provider [phone] Reason for Visit * Reason Comments Med Refill Encounter Details Date Type Department Care Team (Late st Contact Info) Description 09/26/2017 Refill [facility] [address] [place] [phone] Yo Ortega PA [address] [facility], [address] [place] [address] Social History Tobacco Use Types Packs/Day Years [...] encounter Miscellaneous Notes * Telephone Encounter - Rowan Melgar RN - 09/26/2017 2:53 PM EST We do not accept medication refill requests from pharmacies. Patient needs to request refill. documented in this encounter Plan of Treatment Not on file documented as of this encounter Visit Diagnoses Not on filedocumented in this encounter Additional Health Concerns Infection Onset Date Last Indicated Resolved Time COVID-19 Rule-Out 11/15/2022 11/15/2022 11/15/2022 5:58 PM EDT documented as of this encounter Care Teams Acute Care Occupational Therapist Relationship Specialty Start Date End Date Danielle Lancaster MD PCP - General Family Medicine 02/15/17 documented as of this encounter
--- OUTSIDE RECORDS SUMMARY | 2025-02-17 17:48 | XMS_ITS | Encounter Summary ---
Author Organization [employer] Address [facility] [id number] [address] [place] [address] Care Team Providers Care Rn Staff Name Role Phone Danielle Lancaster MD Primary Care Provider [phone] Encounter Details Date Type Department Care Team (Late st Contact Info) Description 12/06/2022 Telephone [facility] [address] [place] [address] Ana Tellez, DIGITAL MARKETING OFFICER Social History Tobacco Use Types Packs/Day Years [...] have Coronavirus / COVID-19? No / Unsure 11/15/2022 4:13 PM EDT documented as of this encounter Miscellaneous Notes * Telephone Encounter - Ana Tellez CMA - 12/06/2022 2:19 PM EDT Lm to confirm appt on December 14 documented in this encounter Plan of Treatment Not on file documented as of this encounter Visit Diagnoses Not on filedocumented in this encounter Care Teams Rn Staff Relationship Specialty Start Date End Date Danielle Lancaster MD PCP - General Family Medicine 02/15/17 documented as of this encounter
--- OUTSIDE RECORDS SUMMARY | 2025-02-17 17:48 | XMS_ITS | Encounter Summary ---
Author Organization [facility] tem Address [id number] [address] [place] [address] Care Team Providers Care Rod Pointer Name Role Phone Danielle Lancaster MD Primary Care Provider [phone] Reason for Visit * Reason Comments Med Refill Encounter Details Date Type Department Care Team (Late st Contact Info) Description 07/25/2017 Refill [facility] [address] [place] [address] Yo Ortega PA [address] [facility], [address] [place] [address] Social History Tobacco Use Types Packs/Day Years [...] documented as of this encounter Care Teams Rod Pointer Relationship Specialty Start Date End Date Danielle Lancaster MD PCP - General Family Medicine 02/15/17 documented as of this encounter
--- OUTSIDE RECORDS SUMMARY | 2025-02-17 17:48 | XMS_ITS | Encounter Summary ---
Author Organization [employer] Address [facility] [id number] [address] [place] [address] Care Team Providers Care University Manager Name Role Phone Danielle Lancaster MD Primary Care Provider [phone] Reason for Visit * Reason Onset Date Comments Med Refill 06/07/2022 Encounter Details Date Type Department Care Team (Late st Contact Info) Description 06/07/2022 Refill [facility] [address] [place] [address] Joseph Vazquez, PA-C [address] [place] [address] Med Refill Social History Tobacco Use Types Packs/Day Years [...] have Coronavirus / COVID-19? No / Unsure 05/12/2022 4:05 PM EDT documented as of this encounter Miscellaneous Notes * Telephone Encounter - Kalie Ragsdale RN - 06/07/2022 1:24 PM EDT Refill addressed 06/07/22 documented in this encounter Plan of Treatment Not on file documented as of this encounter Visit Diagnoses Not on filedocumented in this encounter Additional Health Concerns Infection Onset Date Last Indicated Resolved Time COVID-19 Rule-Out 11/15/2022 11/15/2022 11/15/2022 5:58 PM EDT documented as of this encounter Care Teams University Manager Relationship Specialty Start Date End Date Danielle Lancaster MD PCP - General Family Medicine 02/15/17 documented as of this encounter
--- OUTSIDE RECORDS SUMMARY | 2025-02-17 17:48 | XMS_ITS | Encounter Summary ---
Author Organization [employer] tem Address [facility] [id number] [address] [place] [address] Care Team Providers Care Flower Shop Manager Name Role Phone Danielle Lancaster MD Primary Care Provider [phone] Encounter Details Date Type Department Care Team (Late st Contact Info) Description 08/15/2021 Telephone [facility] [address] [place] [address] Molly Croft CMA Social History Tobacco Use Types Packs/Day Years [...] documented as of this encounter Care Teams Flower Shop Manager Relationship Specialty Start Date End Date Danielle Lancaster MD PCP - General Family Medicine 02/15/17 documented as of this encounter
--- OUTSIDE RECORDS SUMMARY | 2025-02-17 17:48 | XMS_ITS | Encounter Summary ---
Author Organization [facility] Address [address] [facility] [place] [address] Care Team Providers Care Crib Tender Name Role Phone Danielle Lancaster MD Primary Care Provider [phone] Lynne Luong DO Unavailable [phone] Encounter Details Date Type Department Care Team (Late st Contact Info) Description 01/02/[address] [facility] [address] [facility] [address] [place] [address] Aaron Serrano DO [address] [facility] [address] [place] [address] Social History Tobacco Use Types Packs/Day Years [...] How often do you attend chur or taoism services? More than 4 times per year 02/28/2023 Do you belong to any clubs o r organizations such as christianity groups, unions, fraternal or athletic groups, or [...] Patient Health Questionnaire-2 Score 0 04/03/2023 [facility] - Occupational Stress Questionnaire Answer Date [...] place to sleep or slept in a detention (including now)? No 02/28/2023 Education Answer Date [...] ULTRASOUND [address] [place] [address] 02/24/2025 2:00 PM EDT Office Visit [facility] [address] [place] [address] Yo Brown, PA [address] [facility] [address] [place] [address] 05/19/2025 3:00 PM EDT Office Visit [facility] [address] [place] [address] Lynne Luong DO [address] [place] [address] documented as of this encounter Procedures Procedure Name Priority Date/Time Associated Diagnosis Comments COLONOSCOPY Routine 01/02/2024 2:18 PM EDT documented in this encounter Results * Colonoscopy (01/02/2024 2:18 PM EDT) Anatomical Region Laterality Modality Endoscopy Aaron Serrano DO ENDOSCOPY PROCEDURE ORDERABLES Final Result documented in this encounter Visit Diagnoses Not on filedocumented in this encounter Care Teams Crib Tender Relationship Specialty Start Date End Date Danielle Lancaster MD [address] [place] [address] PCP - General Family Medicine 01/08/23 Lynne Luong DO [address] [place] [address] PCP - Ike Navarro 11/19/23 documented as of this encounter
--- OUTSIDE RECORDS SUMMARY | 2025-02-17 17:48 | XMS_ITS | Encounter Summary ---
Author Organization [facility] Address [address] [place] [address] Care Team Providers Care Consultant Internship Name Role Phone Danielle Lancaster MD Primary Care Provider [phone] Lynne Luong DO Unavailable [phone] Lynne Luong DO Unavailable [phone] Encounter Details Date Type Department Care Team (Late st Contact Info) Description 03/07/2023 Abstract [facility] [address] [place] [address] Gin Escobedo, C.O.D. [address]ILL[address] [place] [address] Social History Tobacco Use Types Packs/Day Years Used Date Smoking Tobacco: Former Cigarettes 3 28 0 08/20/1984 - 08/20/2012 Tobacco Cessation:Counseling Given: Not Answered Comments:Last [...] How often do you attend chur or mormon services? More than 4 times per year 02/28/2023 Do you belong to any clubs o r organizations such as buddhist groups, unions, fraternal or athletic groups, or [...] housing, medical care, and heating? Hard 02/28/2023 [facility] Occupat ional Health - [...] place to sleep or slept in a fpc (including now)? No 02/28/2023 Education Answer Date [...] suspected to have Coronavirus/COVID-19? No / Unsure 02/28/2023 11:38 AM EDT documented as of this encounter Plan of Treatment Upcoming Encounters Date Type Department Care Team (Late st Contact Info) Description 02/19/2025 4:15 PM EDT Ancillary Procedure [facility] [address] [place] [address] 02/24/2025 2:00 PM EDT Office Visit [facility] [address] [place] [address] Yo Brown, PA [address] [facility] [address] [place] [address] 05/19/2025 3:00 PM EDT Office Visit [facility] [address] [place] [address] Lynne Luong DO [address] [place] [address] documented as of this encounter Visit Diagnoses Not on filedocumented in this encounter Care Teams Consultant Internship Relationship Specialty Start Date End Date Danielle Lancaster MD [address] [facility] [place] [address] PCP - General Family Medicine 01/08/23 Lynne Luong DO [address] [place] [address] PCP - [facility] 02/17/23 Lynne Luong DO [address] [place] [address] [facility] 11/19/23 documented as of this encounter
--- OUTSIDE RECORDS SUMMARY | 2025-02-17 17:48 | XMS_ITS | Encounter Summary ---
Author Organization [facility] Address [facility] [place]-[id number] [address] [place] [address] Care Team Providers Care Institutional Aide Name Role Phone Danielle Lancaster MD Primary Care Provider [phone] Encounter Details Date Type Department Care Team (Late st Contact Info) Description 07/13/2021 [facility]phone [facility] [address] [place] [address] Claudia Paz RN Social History Tobacco Use Types Packs/Day Years [...] documented as of this encounter Care Teams Institutional Aide Relationship Specialty Start Date End Date Danielle Lancaster MD PCP - General Family Medicine 02/15/17 documented as of this encounter
--- OUTSIDE RECORDS SUMMARY | 2025-02-17 17:48 | XMS_ITS | Encounter Summary ---
Author Organization [facility] Address [address] [place] [address] Care Team Providers Care Nuclear Reactor Engineer Name Role Phone Danielle Lancaster MD Primary Care Provider [phone] Lynne Luong DO Unavailable [phone] Encounter Details Date Type Department Care Team (Late st Contact Info) Description 12/07/2023 Abstract [facility] [address] [place] [id number] Lynne Luong, [address] [address] Social History Tobacco Use Types Packs/Day Years [...] week 02/28/2023 How often do you attend [facility] or buddhism services? More than 4 times per year 02/28/2023 Do you belong to any clubs o r organizations such as religion groups, unions, fraternal or athletic groups, or [...] Recorded Patient Health Questionnaire-2 Score 0 04/03/2023 [facility] - [...] ULTRASOUND [address] [place] [address] 02/24/2025 2:00 PM EDT Office Visit [facility] [address] [place] [address] Yo Brown, [place] [address] [facility] [address] [place] [address] 05/19/2025 3:00 PM EDT Office Visit [facility] [address] [place] [address] Lynne Luong DO [address] [place] [address] documented as of this encounter Visit Diagnoses Not on filedocumented in this encounter Care Teams Nuclear Reactor Engineer Relationship Specialty Start Date End Date Danielle Lancaster MD [address] [place] [address] PCP - General Family Medicine 01/08/23 Lynne Luong DO [address] [place] [address] PCP - [employer] 11/19/23 documented as of this encounter
--- OUTSIDE RECORDS SUMMARY | 2025-02-17 17:48 | XMS_ITS | Clinical Summary ---
Author Organization [employer] Address [id number] [address] [place] [address] Care Team Providers Care Electrical Appliance Preparer Name Role Phone Danielle Lancaster MD Primary Care Provider [phone] Allergies Active Allergy Reactions Criticality Noted Date Comments Ciprofloxacin Swelling 01/16/2017 Fenofibrate 11/03/2021 Decreased renal function Nsaids (Non-Steroidal Anti-Inflammatory Drug) 01/03/2018 Due to kidney function Penicillins Anaphylaxis High 01/16/2017 Gpnoein-Lrx-Anv Reductase Inhibitors muscle cramps 01/03/2018 Trimethobenzamide Anaphylaxis High 01/16/2017 Medications insulin regular human U-500 concentrated (HumuLIN R U-500 concentrated ) 500 unit/mL injection Inject under the skin once. 60 units in morning and50 units in evening Active cholecalcifero l, vitamin D3, 50,000 units tablet Take 1 tablet (50,000 Units total) by mouth once a week. Active nystatin (MYCOSTATIN) powder daily as needed. 2 Active TRESIBA U-100 INSULIN 100 unit/mL solution INJECT 50 UNITS SUBCUTANEOUSLY DAILY 2 Active FARXIGA 5 mg tablet Take 1 tablet (5 mg total) by mouth in the morning. 2 Active baclofen (LIORESAL) 10 mg tablet Take 1 tablet (10 mg total) by mouth nightly. 10 in the AM and 20 at NIGHT 2 Active fluticasone propionate (FLONASE) 50 mcg/actuation nasal spray INSERT 1 (ONE) spray in EACH nostril DAILY 2 Active CHROMIUM ORAL Take 200 mcg by mouth 2 (two) times a day. Active doxycycline (VIBRA-TABS) 100 mg tablet Take 1 tablet (100 mg total) by mouth as needed. Active pregabalin (LYRICA) 25 mg capsule Take 1 capsule (25 mg total) by mouth in the morning and 1 capsule (25 mg total) before bedtime. Active melatonin 10 mg tablet Take 10 mg by mouth once daily at bedtime. Active MAGNESIUM CARBONATE ORAL Take 500 mg by mouth daily. Active omega-3 acid ethyl esters (LOVAZA) 1 gram capsule Take 2 capsules (2 g total) by mouth in the morning and 2 capsules (2 g total) before bedtime. 360 capsule 2 3 Active Active Problems Problem Noted Date Diagnosed Date Class 3 severe obesity due t o excess calories without serious comorbidity in adult 01/09/2022 Abnormal stress test 01/09/2022 Overview (01/09/2022): Added automatically from request for surgery [id number] Type 2 diabetes mellitus, wi th long-term current use of insulin 03/28/2021 Hyperlipidemia associated with type 2 diabetes m ellitus 03/28/2021 Shortness of breath 03/28/2021 Hypertriglyceridemia 03/28/2021 Chronic renal impairment, stage 3b 03/28/2021 Thoracic spondylosis without myelopathy 09/04/19 Overview (09/04/2018): Added automatically from request for surgery [id number] Thoracic neuritis 07/03/2017 Overview (07/03/2017): Added automatically from request for surgery [id number] Spondylosis without myelopat hy or radiculopathy, thoracic region 01/16/2017 Chest pain Family History Medical History Relation Name Comments Heart disease Father Diabetes Mother Heart disease Mother Relation Name Status Comments Father Alive Mother Social History Tobacco Use Types Packs/Day Years Used Date Smoking Tobacco: Former Smokeless Tobacco: Never Tobacco Cessation:Counseling Given: Not Answered Alcohol Use Standard Drinks/Week Comments Yes 0 (1 standard drink = 0.6 oz pur e alcohol) RARELY Childcare Answer Date Recorded Childcare Unknown 01/29/2019 Employment Answer Date Recorded Employment Unknown 01/29/2019 Hunger Screening Answer Date Recorded Within the past 12 months we worried whether our food would run out before we got money to buy more. Never True 01/23/2023 Within the past 12 months th e food we bought just didn't last and we didn't have money to get more. Never True 01/23/2023 Purpose - Life Answer Date Recorded Purpose and direction in life Unknown Sex and Gender Information Value Date Recorded Sex Assigned at Male 03/28/2021 2:12 PM EDT Legal Sex Male 11:26 AM EDT Gender Identity Male 03/28/2021 2:12 PM EDT Sexual Orientation Don't know 12/14/2022 4: 56 PM EDT Last Filed Vital Signs Vital Sign Reading Time Taken Comments Blood Pressure 124/70 01/23/2023 2:57 PM EDT Pulse 95 01/23/2023 2:57 PM EDT Temperature 37 C (98.6 F) 11/15/2022 4:08 PM EDT Respiratory Rate 16 11/15/2022 7:00 PM EDT Oxygen Saturation 97% 01/23/2023 2:57 PM EDT Inhaled Oxygen Concentration - - Weight 166.9 kg (368 lb) 01/23/2023 2:57 PM EDT Height 177.8 cm (5' 10 ) 01/23/2023 2:57 PM EDT Body Mass Index 52.8 01/23/2023 2:57 PM EDT Plan of Treatment Health Maintenance Due Date Last Done Comments Diabetic Ophthalmology Exam 1972 Depression Screening 1984 Tobacco Screening 1984 Diabetic Foot Exam 1990 DTaP,Tdap and Td Vaccines (1 - Tdap) 1991 Zoster (Shingles) Vaccine (1 of 2) 2022 Adult BMI Screening 01/24/2024 01/23/2023 Influenza Vaccine 04/20/2025 Medical Devices Implanted Type Area Case Coordinator Device Identifier Shelf Expiration Date Model / Serial / Lot Knee Description:left; titanium s crews to repair ACL [id number] [place] MED[place]ID [place] Care Teams Electrical Appliance Preparer Relationship Specialty Start Date End Date Danielle Lancaster MD PCP - General Family Medicine 02/15/17
--- OUTSIDE RECORDS SUMMARY | 2025-02-17 17:48 | XMS_ITS | Encounter Summary ---
Author Organization [facility] [employer] Address [facility] [id number] [address] [place] [address] Care Team Providers Care Airport Electrician Name Role Phone Danielle Lancaster MD Primary Care Provider [phone] Encounter Details Date Type Department Care Team (Late st Contact Info) Description 02/10/2021 Orders Only [facility] [address] [place] [address] External, Scanning Provider Social History Tobacco Use Types Packs/Day Years [...] on file documented as of this encounter Procedures Procedure Name Priority Date/Time Associated Diagnosis Comments MULTIPLE LABS Routine 02/06/2021 LIPID PROFILE Routine 02/06/2021 LIPID PROFILE Routine 03/22/2020 documented in this encounter Results * Lipid profile (02/06/2021) External Cholesterol 290 MANUALLY TRANSCRIBED RESULTS External Cholesterol:Hdl 10.0 MANUALLY TRANSCRIBED RESULTS External Hdl Cholesterol 29 MANUALLY TRANSCRIBED RESULTS External Triglycerides 2,143 MANUALLY TRANSCRIBED RESULTS External Very Low Lipoprotein 429 MANUALLY TRANSCRIBED RESULTS us Scanning Provider External LAB BLOOD ORDERABLES Edited Result - Final Performing Organization Address [facility] Co de Phone Number MANUALLY TRANSCRIBED RESULTS * Multiple labs (02/06/2021) us Scanning Provider External [place] [facility] Final Result Performing Organization Address [facility] de Phone Number MANUALLY TRANSCRIBED RESULTS * Lipid profile (03/22/2020) External Cholesterol 222 MANUALLY TRANSCRIBED RESULTS External Cholesterol:Hdl 8 MANUALLY TRANSCRIBED RESULTS External Hdl Cholesterol 29 MANUALLY TRANSCRIBED RESULTS External Ldl (Calc) 76 MANUALLY TRANSCRIBED RESULTS External Triglycerides 841 MANUALLY TRANSCRIBED RESULTS External Very Low Lipoprotein 168 MANUALLY TRANSCRIBED RESULTS us Scanning Provider External LAB BLOOD ORDERABLES Edited Result - Final Performing Organization Address [facility] Co de Phone Number MANUALLY TRANSCRIBED RESULTS documented in this encounter Visit Diagnoses Not on filedocumented in this encounter Additional Health Concerns Infection Onset Date Last Indicated Resolved Time COVID-19 Rule-Out 11/15/2022 11/15/2022 11/15/2022 5:58 PM EDT documented as of this encounter Care Teams Airport Electrician Relationship Specialty Start Date End Date Danielle Lancaster MD PCP - General Family Medicine 02/15/17 documented as of this encounter
--- NOTE | 2025-02-17 18:06 | ED.GENADUL1 ---
HPI HPI - General Adult General Chief complaint: Back Pain/Injury Stated complaint: FLANK PAIN Time Seen by Provider: 02/17/25 17:35 Source: patient Mode of arrival: Wheelchair Limitations: no limitations History of Present Illness HPI narrative: The patient is a 54-year-old male who presents to the emergency department today for evaluation of concerns for right back/flank region pain. Patient does endorse some radiation of pain to the right buttock however endorses the pain to suddenly have sharp pains intermittently. He mentions the pain is over a focal area in his back. He denies any saddle anesthesia or concerns with bowel/bladder function other than he does endorse having a history of prostate disease causing some frequent urination in addition mentions he has had diarrhea the past few days and did have an episode of incontinence due to loose stool. No fevers or history of malignancy. He does endorse a history of thoracic injuries to his back with nerve pain. Patient's he has a history of arthritis. No abdominal pain or nausea/vomiting otherwise. Related Data Home Medications ?Medication ?Instructions ?Recorded ?Confirmed baclofen 10 mg tablet 10 mg PO Q8H 02/17/25 02/17/25 cholecalciferol (vitamin D3) 1,250 50,000 unit PO QWEEK 02/17/25 02/17/25 mcg (50,000 unit) capsule cyanocobalamin (vitamin B-12) 1,000 mcg PO DAILY 02/17/25 02/17/25 1,000 mcg tablet dapagliflozin propanediol 5 mg 5 mg PO QDAY 02/17/25 02/17/25 tablet diclofenac sodium 1 % topical gel 2 g topical QID PRN pain 02/17/25 02/17/25 (Arthritis Pain (diclofenac)) doxycycline hyclate 100 mg capsule 100 mg PO Q12H PRN skin cysts 02/17/25 02/17/25 fluticasone propionate 50 1 spray intranasal DAILY 02/17/25 02/17/25 mcg/actuation nasal spray,suspension (Allergy Relief (fluticasone)) insulin degludec 100 unit/mL (3 76 unit subcut .qhs 02/17/25 02/17/25 mL) subcutaneous pen (Tresiba FlexTouch U-100 insulin) insulin regular hum U-500 conc 500 75 unit subcut .COMPLEX 02/17/25 02/17/25 unit/mL(3 mL) subcut pen (Humulin R U-500 (Conc) Insulin Kwikpen) magnesium oxide 400 mg PO DAILY 02/17/25 02/17/25 melatonin 10 mg capsule 10 mg PO HS PRN sleep 02/17/25 02/17/25 metformin 500 mg tablet,extended 1,000 mg PO .q12 02/17/25 02/17/25 release 24 hr omega-3 acid ethyl esters 1 gram 2 cap PO .q12 02/17/25 02/17/25 capsule tamsulosin 0.4 mg capsule 0.4 mg PO Q24H 02/17/25 02/17/25 Previous Rx's ?Medication ?Instructions ?Recorded hydrocodone 5 mg-acetaminophen 325 1 tab PO Q6H PRN pain #7 tabs 02/17/25 mg tablet methylprednisolone 4 mg tablets in 4 mg PO QID 4 doses #21 ea 02/17/25 a dose pack (Medrol (Kee)) Allergies Allergy/AdvReac Type Severity Reaction Status Date / Time ciprofloxacin (From Cipro) Allergy Muscle Pain Verified 02/17/25 17:48 Penicillins Allergy Anaphylaxis Verified 02/17/25 17:48 Wlflzkp-OVA-OrO Reductase Allergy Muscle Pain Verified 02/17/25 17:48 Inhibitor trimethobenzamide (From Allergy Anaphylaxis Verified 02/17/25 17:48 Tigan) Opioid HPI Opioid Management Most Recent Opioid Data: Last Pain Scale 7 Today, 18:49 Last MAR Pain Assessment Today, 18:49 Review of Systems ROS Status of ROS 10 or more systems reviewed and unremarkable except as noted in history and below PFSH PFSH Social History Little interest or pleasure in doing things: not at all Feeling down, depressed, or hopeless: not at all Exam Narrative Exam Narrative: Constituational: Awake/ alert, no apparent distress, well hydrated HENMT: normocephalic, external ears normal, moist oral mucous membranes and oropharynx normal Eyes: EOMI and conjunctivae normal Neck: ROM intact Chest: inspection of chest normal Respiratory: Normal respiratory effort, clear to auscultation bilaterally Cardio: regular rate and regular rhythm GI: soft to palpation and non-tender Back: + Focal area discomfort with palpation over R flank/SI region with mild R sciatic notch discomfort. Normal straight leg raise. Otherwise normal inspection of back, no vertebral tenderness. MSK: ROM intact, +NVI Skin: no rashes or petechiae Neuro: no focal deficits, normal dorsi/plantarflexion bilaterally. Normal [id number]-fw-[id number] bilaterally. Psych: mental status grossly normal Constitutional Vital Signs, click to edit/add: Last Vital Signs Temp 99.1 F 02/17/25 17:48 Pulse 83 02/17/25 17:48 Resp 18 02/17/25 17:48 BP 147/66 H 02/17/25 17:48 Pulse Ox 93 L 02/17/25 17:48 O2 Del Method Room Air 02/17/25 17:48 Course Vital Signs Vital signs: Vital Signs Temperature 99.1 F 02/17/25 17:48 Pulse Rate 83 02/17/25 17:48 Respiratory Rate 18 02/17/25 17:48 Blood Pressure 147/66 H 02/17/25 17:48 Pulse Oximetry 93 L 02/17/25 17:48 Oxygen Delivery Method Room Air 02/17/25 17:48 Temperature 99.1 F 02/17/25 17:48 Pulse Rate 83 02/17/25 17:48 Respiratory Rate 18 02/17/25 17:48 Blood Pressure 147/66 H 02/17/25 17:48 Pulse Oximetry 93 L 02/17/25 17:48 Oxygen Delivery Method Room Air 02/17/25 17:48 Medical Decision Making MDM Narrative Medical decision making narrative: Patient is a nontoxic-appearing 54-year-old male who presented to the ER today for evaluation concerns for 1 month history of sharp shooting back pain radiating down his right buttock. Initial examination vital signs overall stable patient does have clinical evidence consistent with likely lumbar radiculopathy. Otherwise no concerning neurovascular or motor findings on exam. Low clinical suspicion for spinal cord injury as patient is otherwise neurologically intact per exam. Patient expressed concerns for renal etiology related to his pain. Labs were subsequently obtained that showed no significant leukocytosis, anemia, thrombocytopenia. Electrolytes including renal and hepatic function stable. UA is negative for UTI or hematuria. X-ray imaging of lumbar spine without critical findings. Received supportive measures of [place] and on reevaluation he reported some improvement in pain. Historically patient does have history of arthritis and degenerative changes to thoracic spine with what he described to be nerve injury . Discussed the above findings with the patient including recommendations for supportive care of likely lumbar radiculopathy. Will discharge home with Medrol Dosepak and [place] for severe pain. Advised on close follow-up with patient's primary care provider for evaluation. Discussed signs and symptoms consider reevaluation by the emergency department. Patient verbalized an understanding of this and is agreeable with the plan to be discharged home. Medical Records Medical records reviewed: Yes I reviewed the patient's medical records Lab Data Lab results reviewed: Yes I reviewed the patient's lab results Labs: Lab Results 02/17/25 02/17/25 Range/Units 18:26 19:20 WBC 7.1 (4.0-11.0) 10^3/uL RBC 5.56 (4.70-6.10) 10^6/uL Hgb 16.9 (14.0-18.0) g/dL Hct 48.9 (42.0-54.0) % MCV 87.9 (80.0-94.0) fL MCH 30.4 (25.9-34.0) pg MCHC 34.6 (29.9-35.2) g/dL RDW 12.9 (11.0-15.0) % Plt Count 195 (150-450) 10^3/uL MPV 9.0 L (9.5-13.5) fL Neut % (Auto) 51.8 (43.0-75.0) % Lymph % (Auto) 40.6 (20.5-60.0) % [place] % (Auto) 6.5 (1.7-12.0) % Eos % (Auto) 0.7 L (0.9-7.0) % Baso % (Auto) 0.3 (0.2-2.0) % Neut # (Auto) 3.7 (1.4-6.5) 10^3/uL Lymph # (Auto) 2.9 (1.2-3.8) 10^3/uL [place] # (Auto) 0.5 (0.3-0.8) 10^3/uL Eos # (Auto) 0.1 (0.0-0.7) 10^3/uL Baso # (Auto) 0.0 (0.0-0.1) 10^3/uL Abs Immat Gran (auto) 0.01 (0.00-0.03) 10^3/uL Imm/Tot Granulo (auto) 0.1 (0.0-0.5) % Sodium 141 (136-145) mmol/L Potassium 3.9 (3.5-5.1) mmol/L Chloride 103 (98-107) mmol/L Carbon Dioxide 26.7 (21.0-32.0) mmol/L Anion Gap 15.2 BUN 15.0 (7.0-18.0) mg/dL Creatinine 1.07 (0.70-1.30) mg/dL Est GFR ( Amer) >60 (>=60 mL/min/1.73m^2) Est GFR (Non-Af Amer) >60 (>=60 mL/min/1.73m^2) BUN/Creatinine Ratio 14.0 Glucose 195 H (74-106) mg/dL Calcium 9.8 (8.5-10.1) mg/dL Total Bilirubin 0.5 (0.2-1.0) mg/dL AST 20 (15-37) U/L ALT 34 (16-63) U/L Alkaline Phosphatase 88 (46-116) U/L Total Protein 7.4 (6.4-8.2) g/dL Albumin 3.9 (3.4-5.0) g/dL Globulin 3.5 g/dL Albumin/Globulin Ratio 1.1 Urine Color Yellow (YELLOW) Urine Clarity Clear (CLEAR) Urine pH 6.0 (5.0-9.0) Ur Specific [place] 1.025 (1.005-1.025) Urine Protein Negative (NEG/TRACE) mg/dL Urine Glucose (UA) 500 A (NEGATIVE) mg/dL Urine Ketones 40 A (NEGATIVE) mg/dL Urine Occult Blood Negative (NEGATIVE) Urine Nitrite Negative (NEGATIVE) Urine Bilirubin Negative (NEGATIVE) Urine Urobilinogen 1.0 (0.2-1.0) EU/dL Ur Leukocyte Esterase Negative (NEGATIVE) Urine RBC None seen (0-2) #/HPF Urine WBC None seen (NONE SEEN) #/HPF Ur Squamous Epith Cells Rare (NONE/RARE) #/LPF Urine Crystals None seen (None Seen) #/HPF Urine Bacteria None seen (NONE SEEN) #/HPF Urine Casts None seen (NONE SEEN) #/LPF Urine Mucus None seen (NONE SEEN) Ur Culture Indicated? No Imaging Data XR Lumbar spine: Attestation: I have reviewed the pertinent imaging results. Radiologist's impression: ITS Impressions Lumbar Spine X-Ray 02/17/25 18:07 IMPRESSION: Degenerative change greatest in the lower facets. Impression dictated by: Richard Khan M.D. 02/17/2025 8:07 PM Dictation Location: [id number] Electronically authenticated by: [id number] Y Date: 02/17/2025 20:07 Discharge Plan Discharge Chief Complaint: Back Pain/Injury Clinical Impression: Lumbar radiculopathy Patient Disposition: Home, Self-Care Prescriptions / Home Meds: New methylprednisolone [Medrol (Kee)] 4 mg tablets,dose pack 4 mg PO QID 0 Days Qty: 21 0RF hydrocodone-acetaminophen 5-325 mg tablet 1 tab PO Q6H PRN (Reason: pain) Qty: 7 0RF No Action baclofen 10 mg tablet 10 mg PO Q8H dapagliflozin propanediol 5 mg tablet 5 mg PO QDAY insulin degludec [Tresiba FlexTouch U-100] 100 unit/mL (3 mL) insulin pen 76 unit SUBCUT .qhs metformin 500 mg tablet extended release 24 hr 1,000 mg PO .q12 doxycycline hyclate 100 mg capsule 100 mg PO Q12H PRN (Reason: skin cysts) Humulin R U-500 (Conc) Kwikpen 500 unit/mL (3 mL) insulin pen 75 unit SUBCUT .COMPLEX Rx Instructions: 75 units subcutaneously 75 units with breakfast and 60 units with dinner; omega-3 acid ethyl esters 1 gram capsule 2 cap PO .q12 tamsulosin 0.4 mg capsule 0.4 mg PO Q24H cholecalciferol (vitamin D3) 1,250 mcg (50,000 unit) capsule 50,000 unit PO QWEEK diclofenac sodium [Arthritis Pain (diclofenac)] 1 % gel 2 g topical QID PRN (Reason: pain) Rx Instructions: to knees fluticasone propionate [Allergy Relief (fluticasone)] 50 mcg/actuation spray,suspension 1 spray intranasal DAILY Rx Instructions: administer into each nostril melatonin 10 mg capsule 10 mg PO HS PRN (Reason: sleep) magnesium oxide 400 mg magnesium tablet 400 mg PO DAILY cyanocobalamin (vitamin B-12) 1,000 mcg tablet 1,000 mcg PO DAILY Print Language: Vincentian Instructions: Lumbar Radiculopathy (ED) Additional Instructions: Rest, ice, avoid heat. Take Medrol Dosepak as prescribed. Continue your baclofen. Alternate Tylenol and ibuprofen as needed for any pain. May take [place] as needed for severe pain. Close follow-up with your primary care provider for reevaluation as discussed. Referrals: ELIZABETH GORMAN [Primary Care Provider, Family Practice] - 1 week
--- NOTE | 2025-02-17 18:07 | XR_ITS ---
[address] [address] Patient Name: EVON ARAUZ MRN: [id number] date: 1970 Sex: M Assigned Patient Location: ED.MAIN Current Patient Location: ED.MAIN Accession/Order Number: [id number] Exam Date: 02/17/2025 20:05 Report Date: 02/17/2025 20:07 At the request of: MIRIAM MONROE NP Procedure: XR lumbar spine 2-3V 2 view Lumbar Spine HISTORY: Chronic back pain. Right SI joint pain. COMPARISON: 10/31/2022 POSTSURGICAL CHANGES: None BONY ALIGNMENT: Mild scoliosis HYPERMOBILITY:No bending imaging. LISTHESIS:None FRACTURE: None DEGENERATIVE CHANGES: Hyperostosis and spondylosis. Extensive lower lumbar facet degeneration SOFT TISSUES: Atherosclerosis BONY MINERALIZATION:Adequate XR/XR lumbar spine 2-3V IMPRESSION: Degenerative change greatest in the lower facets. Impression dictated by: Richard Khan M.D. 02/17/2025 8:07 PM Dictation Location: [facility] Electronically authenticated by: [id number] Y Date: 02/17/2025 20:07
[2025-02-17 18:32] LABS: Hematocrit 48.9 % (42.0-54.0); Hemoglobin 16.9 g/dL (14.0-18.0); Immature Granulocytes Abs Auto 0.01 10^3/uL (0.00-0.03); Immature Granulocytes Pct Auto 0.1 % (0.0-0.5); Lymphocytes Absolute Auto 2.9 10^3/uL (1.2-3.8); Mean Corpuscular HGB Conc 34.6 g/dL (29.9-35.2); Mean Corpuscular Hemoglobin 30.4 pg (25.9-34.0); Mean Corpuscular Volume 87.9 fL (80.0-94.0); Platelet Count 195 10^3/uL (150-450); Red Blood Count 5.56 10^6/uL (4.70-6.10); White Blood Count 7.1 10^3/uL (4.0-11.0)
[2025-02-17 18:46] LABS: Alanine Aminotransferase 34 U/L (16-63); Albumin Globulin Ratio 1.1; Albumin Level 3.9 g/dL (3.4-5.0); Alkaline Phosphatase 88 U/L (46-116); Anion Gap 15.2; Aspartate Amino Transferase 20 U/L (15-37); Blood Urea Nitrogen 15.0 mg/dL (7.0-18.0); Calcium 9.8 mg/dL (8.5-10.1); Carbon Dioxide 26.7 mmol/L (21.0-32.0); Chloride 103 mmol/L (98-107); Estimated GFR (African America >60 (>=60 mL/min/1.73m^2); Estimated GFR (Non-African Ame >60 (>=60 mL/min/1.73m^2); Globulin 3.5 g/dL; Glucose 195 mg/dL (74-106); Potassium 3.9 mmol/L (3.5-5.1); Sodium 141 mmol/L (136-145); Total Protein 7.4 g/dL (6.4-8.2)
[2025-02-17] MEDS: HYDROCODONE/ACET 5-325 MG TABLET 1 TAB PO (18:49)
[2025-02-17 19:29] LABS: Glucose Urine UA 500 mg/dL (NEGATIVE)
[2025-02-17 19:36] LABS: Cast Seen? NONE SEEN #/LPF (NONE SEEN); Crystals Seen? None Seen #/HPF (None Seen)
[2025-02-17 19:37] LABS: Urine Culture Indicated NO
[2025-02-17 20:27] VITALS: BP 138/61; PULSE 75; O2SAT 97
== END 2025-02-17 20:29 | disposition home or self-care (01) ==
PROVIDERS: Nurse Practitioner; Emergency Provider Student in an Organized Health Care Education/Training Program; PCP Family Medicine
DX: M54.16 Radiculopathy, lumbar region (principal)
CPT/HCPCS: 36415; 72100; 80053; 81001; 85025; 99285